=== PATIENT | female | born 1940 | race Caucasian/White ===

== ENCOUNTER 2017-11-09 01:40 | Emergency (ER) | payer MEDICARE ==
[2017-11-09] MEDS ORDERED: Metoprolol Tartrate 5 MG/5 ML SDV IVPUSH ONE (01:58)
[2017-11-09] MEDS ORDERED: Aspirin 81 MG Tab.Chew PO ONE (02:00)
[2017-11-09 02:24] LABS: CHLORIDE,CL 100 mmol/L (101-111); SODIUM,NA 131 mmol/L (135-145)
--- NOTE | 2017-11-09 02:29 | EDM.PDOC ---
ED HPI GENERAL MEDICAL PROBLEM - General Chief Complaint: Headache Stated Complaint: AMBULANCE-SOB Time Seen by Provider: 11/09/17 01:40 Source of Information: Reports: Patient, EMS History Limitations: Reports: No Limitations - History of Present Illness INITIAL COMMENTS - FREE TEXT/NARRATIVE: ED via [facility] with c/o headache and chest pain describes headache to top of head intermittent for past 2 months, constant for past 2 days, tonight points left parietal. . Sinus medication had been helpful until today. Tonight chest pain midsternal. Also notes that to have been intermittent for past 2 months, worse after eating pickles. Does not associate with activity. Last saw PCP one year ago. Reports, limiting caffeine and salt intake 2 days prior to most appointment so blood pressure would be down and not require pills. 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 Mid-Sternal Chest Pain Score (Numeric/FACES): 1 - Related Data Allergies Allergy/AdvReac Type Severity Reaction Status Date / Time No Known Allergies Allergy Verified 11/09/17 02:13 Home Meds: Home Meds Aspirin [Halfprin] 81 mg PO DAILY 04/07/16 [History] Ketorolac [Acular 0.5% Ophth Soln] 1 drop EYERT ASDIRECTED 04/07/16 [History] Lutein/Minerals/Vit A,C & E [Ocuvite] 1 tab PO BID 04/07/16 [History] Moxifloxacin [Vigamox 0.5% Ophth Soln] 1 drop EYEBOTH ASDIRECTED 04/07/16 [ History] Phenylephrine HCl/Acetaminophn [Daytime Sinus Softgel] 1 cap PO DAILY PRN [History] prednisoLONE Acetate [Prednisolone Acetate] 1 drop EYERT ASDIRECTED 04/07/16 [ History] Cataractive 3 1 drop EYELF QID 07/01/16 [History] Past Medical History HEENT History: Reports: Cataract, Macular Degeneration Cardiovascular History: Reports: Hypertension, Other (See Below) Other Cardiovascular History: AORTIC STENOSIS; PATIENT NOT TAKING ANY MEDICATIONS FOR HTN Respiratory History: Reports: None Gastrointestinal History: Reports: None Genitourinary History: Reports: None [employer]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: Musculoskeletal History: Reports: None Neurological History: Reports: None Psychiatric History: Reports: None Endocrine/Metabolic History: Reports: Multinodular Thyroid Hematologic History: Reports: None Immunologic History: Reports: None Oncologic (Cancer) History: Reports: None Dermatologic History: Reports: None - Infectious Disease History Infectious Disease History: Reports: Measles, Mumps - Past Surgical History Head Surgeries/Procedures: Reports: None HEENT Surgical History: Reports: None, Cataract Surgery Respiratory Surgical History: Reports: None GI Surgical History: Reports: Appendectomy Female Surgical History: Reports: None Endocrine Surgical History: Reports: Thyroid Biopsy, Other (See Below) Neurological Surgical History: Reports: None Musculoskeletal Surgical History: Reports: None Oncologic Surgical History: Reports: None Dermatological Surgical History: Reports: None Social & Family History - Family History HEENT: Reports: Glaucoma, Impaired Vision Cardiac: Reports: Other (See Below) Other Cardiac Family History: MOTHER HX OF RHEUMATIC FEVER AND CARDIAC DISEASE LATE IN LIFE Respiratory: Reports: None GI: Reports: Other (See Below) Other GI Family History: STOMACH CANCER - FATHER : Reports: None OBGYN: Reports: None Musculoskeletal: Reports: Gout Neurological: Reports: None Psychiatric: Reports: None Endocrine/Metabolic: Reports: Obesity/MBI 30+ Hematologic: Reports: None Immunologic: Reports: None Dermatologic: Reports: None Oncologic: Reports: Other (See Below) Other Oncologic Family History: STOMACH - Tobacco Use Smoking Status *Q: Former Smoker Used Tobacco, but Quit: No Month/Year Tobacco Last Used: 1959 Second Hand Smoke Exposure: No - Caffeine Use Caffeine Use: Reports: Coffee Caffeine Use Comment: 3-4 CUPS APPROX EACH DAY - Recreational Drug Use Recreational Drug Use: No Drug Use in Last 12 Months: No ED ROS GENERAL - Review of Systems Review Of Systems: See Below HEENT: Reports: Glasses Respiratory: Denies: Shortness of Breath, Cough Cardiovascular: Reports: Chest Pain, Blood Pressure Problem. Denies: Dyspnea on Exertion, Edema GI/Abdominal: Reports: No Symptoms, Difficulty Swallowing : Reports: Frequency (reports having to void at least hourly since childhood) Musculoskeletal: Reports: No Symptoms Skin: Reports: No Symptoms Neurological: Reports: Headache. Denies: Numbness, Trouble Speaking, Difficulty Walking, Weakness ED EXAM, GENERAL - Physical Exam Exam: See Below Exam Limited By: No Limitations General Appearance: Alert, No Apparent Distress, Anxious Eye Exam: Bilateral Eye: EOMI Ears: Normal External Exam Nose: Normal Inspection Throat/Mouth: Normal Inspection Head: Atraumatic, Normocephalic Neck: Normal Inspection Respiratory/Chest: No Respiratory Distress, Lungs Clear Cardiovascular: Normal Peripheral Pulses, Other (slightly irregular monitor sinus with PV's intermeittent runs of bigemeny) GI/Abdominal: Normal Bowel Sounds, Soft, Non-Tender Extremities: Normal Inspection Neurological: Alert, Oriented, Normal Cognition Psychiatric: Anxious Skin Exam: Warm, Dry, Intact, Normal Color Course - Vital Signs Last Recorded V/S: Last Vital Signs Temp 98.2 F 11/09/17 05:19 Pulse 86 11/09/17 05:19 Resp 19 11/09/17 05:19 BP 173/49 H 11/09/17 05:19 Pulse Ox 99 11/09/17 05:19 - Orders/Labs/Meds Orders: Active Orders 24 hr Category Date Time Status EKG Documentation Completion [RC] URGENT Care 11/09/17 01:45 Active Chest 1V Frontal [CR] Urgent Exams 11/09/17 01:55 Taken Head wo Cont [CT] Urgent Exams 11/09/17 01:55 Taken Labs: Laboratory Tests 11/09/17 11/09/17 11/09/17 Range/Units 01:56 01:56 01:56 WBC 5.6 (5.0-10.0) 10^3/uL RBC 3.32 L (4.2-5.4) 10^6/uL Hgb 10.9 L (12.0-16.0) g/dL Hct 32.4 L (37.0-47.0) % MCV 97.6 (80-100) fL MCH 32.8 (27.0-34.0) pg MCHC 33.6 (33.0-35.0) g/dL Plt Count 221 (150-450) 10^3/uL Neut % (Auto) 53.6 (42.2-75.2) % Lymph % (Auto) 32.8 (20.5-50.1) % [place] % (Auto) 11.0 H (2-8) % Eos % (Auto) 2.2 (1.0-3.0) % Baso % (Auto) 0.4 (0.0-1.0) % PT (9.0-12.0) SEC INR (0.9-1.2) Sodium 131 L (135-145) mmol/L Potassium 4.0 (3.6-5.0) mmol/L Chloride 100 L (101-111) mmol/L Carbon Dioxide 24.0 (21.0-31.0) mmol/L Anion Gap 11.0 BUN 21 H (7-18) mg/dL Creatinine 1.0 (0.6-1.3) mg/dL Est Cr Clr Drug Dosing 36.91 mL/min Estimated GFR (MDRD) 53 BUN/Creatinine Ratio 21.00 Glucose 105 (74-105) mg/dL Calcium 8.5 (8.4-10.2) mg/dl Total Bilirubin 0.8 (0.2-1.0) mg/dL AST 18 (10-42) IU/L ALT 12 (10-60) IU/L Alkaline Phosphatase 55 (42-121) IU/L Troponin I < 0.02 (0.00-0.02) ng/ml C-Reactive Protein < 0.5 (0.0-1.3) mg/dL B-Natriuretic Peptide 312 H (0-100) pg/ml Total Protein 6.6 L (6.7-8.2) g/dl Albumin 3.9 (3.2-5.5) g/dl Globulin 2.7 Albumin/Globulin Ratio 1.44 Amylase 84 (28-100) U/L Lipase 33 (22-51) U/L TSH, Ultra Sensitive (0.45-5.33) uIu/mL Urine Color (YELLOW) Urine Appearance (CLEAR) Urine pH (5.0-9.0) Ur Specific [place] (1.005-1.030) Urine Protein (NEGATIVE) Urine Glucose (UA) (NEGATIVE) Urine Ketones (NEGATIVE) Urine Occult Blood (NEGATIVE) Urine Nitrite (NEGATIVE) Urine Bilirubin (NEGATIVE) Urine Urobilinogen (0.2-1.0) mg/dL Ur Leukocyte Esterase (NEGATIVE) Urine RBC /HPF Urine WBC (0-5/HPF) /HPF Ur Epithelial Cells /HPF Urine Bacteria (0-FEW/HPF) /HPF 11/09/17 11/09/17 11/09/17 Range/Units 01:56 01:56 02:25 WBC (5.0-10.0) 10^3/uL RBC (4.2-5.4) 10^6/uL Hgb (12.0-16.0) g/dL Hct (37.0-47.0) % MCV (80-100) fL MCH (27.0-34.0) pg MCHC (33.0-35.0) g/dL Plt Count (150-450) 10^3/uL Neut % (Auto) (42.2-75.2) % Lymph % (Auto) (20.5-50.1) % [place] % (Auto) (2-8) % Eos % (Auto) (1.0-3.0) % Baso % (Auto) (0.0-1.0) % PT 9.5 (9.0-12.0) SEC INR 1.0 (0.9-1.2) Sodium (135-145) mmol/L Potassium (3.6-5.0) mmol/L Chloride (101-111) mmol/L Carbon Dioxide (21.0-31.0) mmol/L Anion Gap BUN (7-18) mg/dL Creatinine (0.6-1.3) mg/dL Est Cr Clr Drug Dosing mL/min Estimated GFR (MDRD) BUN/Creatinine Ratio Glucose (74-105) mg/dL Calcium (8.4-10.2) mg/dl Total Bilirubin (0.2-1.0) mg/dL AST (10-42) IU/L ALT (10-60) IU/L Alkaline Phosphatase (42-121) IU/L Troponin I (0.00-0.02) ng/ml C-Reactive Protein (0.0-1.3) mg/dL B-Natriuretic Peptide (0-100) pg/ml Total Protein (6.7-8.2) g/dl Albumin (3.2-5.5) g/dl Globulin Albumin/Globulin Ratio Amylase (28-100) U/L Lipase (22-51) U/L TSH, Ultra Sensitive 1.40 (0.45-5.33) uIu/mL Urine Color Light yellow (YELLOW) Urine Appearance Clear (CLEAR) Urine pH 7.5 (5.0-9.0) Ur Specific [place] 1.015 (1.005-1.030) Urine Protein Negative (NEGATIVE) Urine Glucose (UA) Negative (NEGATIVE) Urine Ketones Negative (NEGATIVE) Urine Occult Blood Negative (NEGATIVE) Urine Nitrite Negative (NEGATIVE) Urine Bilirubin Negative (NEGATIVE) Urine Urobilinogen 0.2 (0.2-1.0) mg/dL Ur Leukocyte Esterase Negative (NEGATIVE) Urine RBC Not seen /HPF Urine WBC 0-5 (0-5/HPF) /HPF Ur Epithelial Cells Few /HPF Urine Bacteria Occasional (0-FEW/HPF) /HPF Meds: Medications Discontinued Medications Generic Name Dose Route Start Last Admin Trade Name Freq PRN Reason Stop Dose Admin Acetaminophen 650 mg 11/09/17 02:39 11/09/17 03:11 Tylenol PO 11/09/17 02:40 650 mg NOW ONE Administration Aspirin 162 mg 11/09/17 02:00 11/09/17 02:05 Aspirin PO 11/09/17 02:01 162 mg ONETIME ONE Administration Iopamidol 100 ml 11/09/17 03:54 Isovue-300 (61%) IVPUSH 11/09/17 03:55 ONETIME ONE Metoprolol Tartrate 5 mg 11/09/17 01:58 11/09/17 02:07 Lopressor IVPUSH 11/09/17 01:59 5 mg ONETIME ONE Administration Morphine Sulfate 2 mg 11/09/17 05:51 11/09/17 06:05 Morphine IVPUSH 11/09/17 05:52 2 mg ONETIME ONE Administration Morphine Sulfate 2 mg 11/09/17 06:22 Morphine IVPUSH 11/09/17 06:23 ONETIME ONE Ondansetron HCl 4 mg 11/09/17 05:51 11/09/17 06:03 Zofran IV 11/09/17 05:52 4 mg ONETIME ONE Administration - Radiology Interpretation Free Text/Narrative:: CT head negative CXR right tracheal bowing probably related to left sided thyroid mass, indeterminate opacity with in the medial right upper lung field. CT w/wo contrast Diffuse enlargement of thyroid gland, Left lobe measures approximately 3.9x3.6.4 with approximately 1.5cm of substernal extension. This results in right tracheal deviation at level of facets with mild luminal narrowing. The right thyroid lobe measures 5.3x4.1x6.1 and is for most part intrathoracic with the inferior aspect reaching the level of the aortic arch. This results in leftward tracheal deviation with mild narrowing of lumen. please see report. - Re-Assessments/Exams Free Text/Narrative Re-Assessment/Exam: 11/09/17 05:52 TC consult with Matthew APODACA and Dr. Hernández surgery. Dr. 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 Tx via [facility]. 11/09/17 06:19 Patient requests code status of Do not resuscitate, Do not intubate Departure - Departure Time of Disposition: 06:00 Disposition: DC/Tfer to Acute Hospital 02 Condition: Undetermined Clinical Impression: Thyroid mass, Tracheal deviation, Intermittent chest pain, Ventricular bigeminy Headache Qualifiers: Headache type: unspecified Headache chronicity pattern: episodic headache Intractability: not intractable Qualified Code(s): R51 - Headache Hypertension Qualifiers: Hypertension type: unspecified Qualified Code(s): I10 - Essential (primary) hypertension - Discharge Information Forms: ED Department Discharge - My Orders Last 24 Hours: My Active Orders 11/09/17 01:45 EKG Documentation Completion [RC] URGENT 11/09/17 01:55 Chest 1V Frontal [CR] Urgent Head wo Cont [CT] Urgent - Assessment/Plan Last 24 Hours: My Active Orders 11/09/17 01:45 EKG Documentation Completion [RC] URGENT 11/09/17 01:55 Chest 1V Frontal [CR] Urgent Head wo Cont [CT] Urgent
[2017-11-09] MEDS ORDERED: Acetaminophen 325 MG Tab PO ONE (02:39)
[2017-11-09] MEDS ORDERED: Iopamidol 612 MG/ML 100 ML Bottle IVPUSH ONE (03:54)
[2017-11-09] MEDS ORDERED: Ondansetron 4 MG/2 ML SDV IV ONE (05:51)
[2017-11-09] MEDS ORDERED: Morphine 2 MG/ML Syringe IVPUSH ONE ×2 (05:51→06:22)
[2017-11-09 06:06] VITALS: BP 191/87
--- NOTE | 2017-11-10 14:22 | EKG ---
11/09/2017 - DANIELITO ANNA - TIME: 1:44 a.m. FINDINGS: Sinus tachycardia with ventricular bigeminy. [facility] /[id number]
--- NOTE | 2017-11-10 14:34 | EKG ---
11/10/2017 - DANIELITO ANNA - TIME: 3:24 a.m. FINDINGS: Sinus rhythm with multiple premature complexes. [facility] /[id number]
--- NOTE | 2017-11-10 15:04 | EKG ---
11/09/2017 - DANIELITO ANNA - TIME: 1:44 a.m. FINDINGS: Sinus tachycardia with ventricular bigeminy. [facility] /[id number]
== END 2017-11-09 06:39 ==
LOC: DL.ED 01:40
DX: E07.89 Other specified disorders of thyroid (principal); I10 Essential (primary) hypertension; J39.8 Other specified diseases of upper respiratory tract; R07.89 Other chest pain; R00.8 Other abnormalities of heart beat; Z87.891 Personal history of nicotine dependence
CPT/HCPCS: 36415; 70450; 71045; 71270; 80053; 81001; 82150; 83690; 83880; 84443; 84484; 85025; 85610; 86140; 93005; 93010; 96374; 96375; 99285; A9270; J2270; J2405; Q9967; J3490

== ENCOUNTER 2018-03-20 02:11 | Inpatient (IN) | payer MEDICARE ==
[2018-03-20 02:55] LABS: CHLORIDE,CL 82 mmol/L (101-111)
[2018-03-20 02:57] LABS: ANION GAP 11.5; SODIUM,NA 113 mmol/L (135-145)
[2018-03-20] MEDS ORDERED: Sodium Chloride 0.9% 1,000 ML IV ONE (03:01)
[2018-03-20] MEDS ORDERED: Acetaminophen 325 MG Tab PO ONE (03:14)
[2018-03-20] MEDS ORDERED: Morphine 2 MG/ML Syringe IVPUSH ONE (03:15)
--- NOTE | 2018-03-20 03:41 | EDM.PDOC ---
ED HPI GENERAL MEDICAL PROBLEM - General Chief Complaint: Headache Stated Complaint: AMBULANCE-DIZZY Time Seen by Provider: 03/20/18 02:15 Source of Information: Reports: Patient, EMS History Limitations: Reports: No Limitations - History of Present Illness INITIAL COMMENTS - FREE TEXT/NARRATIVE: ED with c/o headache to back of head for 2 weeks and feeling dizzy, worse when getting out of bed or from sitting. Fell last week leaving from [employer] on to right elbow and butt , has not hit head. Legs feel week overall. Uses cane when leaves home. 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 Bilateral Posterior Head Pain Score (Numeric/FACES): 9 - Related Data Allergies Allergy/AdvReac Type Severity Reaction Status Date / Time No Known Allergies Allergy Verified 11/09/17 02:13 Home Meds: Home Meds Aspirin [Halfprin] 81 mg PO DAILY 04/07/16 [History] Lutein/Minerals/Vit A,C & E [Ocuvite] 1 tab PO BID 04/07/16 [History] Cataractive 3 1 drop EYELF QID 07/01/16 [History] Lisinopril 20 mg PO BID 03/20/18 [History] hydroCHLOROthiazide [Hydrochlorothiazide] 25 mg PO DAILY 03/20/18 [History] Past Medical History HEENT History: Reports: Cataract, Impaired Vision, Macular Degeneration Cardiovascular History: Reports: Hypertension, Other (See Below) Other Cardiovascular History: AORTIC STENOSIS; PATIENT NOT TAKING ANY MEDICATIONS FOR HTN Respiratory History: Reports: None Gastrointestinal History: Reports: None Genitourinary History: Reports: 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: Musculoskeletal History: Reports: None Neurological History: Reports: None Psychiatric History: Reports: None Endocrine/Metabolic History: Reports: Multinodular Thyroid Hematologic History: Reports: None Immunologic History: Reports: None Oncologic (Cancer) History: Reports: None Dermatologic History: Reports: None - Infectious Disease History Infectious Disease History: Reports: Measles, Mumps - Past Surgical History Head Surgeries/Procedures: Reports: None HEENT Surgical History: Reports: None, Cataract Surgery Respiratory Surgical History: Reports: None GI Surgical History: Reports: Appendectomy Female Surgical History: Reports: None Endocrine Surgical History: Reports: Thyroid Biopsy, Other (See Below) Neurological Surgical History: Reports: None Musculoskeletal Surgical History: Reports: None Oncologic Surgical History: Reports: None Dermatological Surgical History: Reports: None Social & Family History - Family History Family Medical History: Noncontributory HEENT: Reports: Glaucoma, Impaired Vision Cardiac: Reports: Other (See Below) Other Cardiac Family History: MOTHER HX OF RHEUMATIC FEVER AND CARDIAC DISEASE LATE IN LIFE Respiratory: Reports: None GI: Reports: Other (See Below) Other GI Family History: STOMACH CANCER - FATHER : Reports: None OBGYN: Reports: None Musculoskeletal: Reports: Gout Neurological: Reports: None Psychiatric: Reports: None Endocrine/Metabolic: Reports: Obesity/MBI 30+ Hematologic: Reports: None Immunologic: Reports: None Dermatologic: Reports: None Oncologic: Reports: Other (See Below) Other Oncologic Family History: STOMACH - Tobacco Use Smoking Status *Q: Former Smoker Used Tobacco, but Quit: Yes Month/Year Tobacco Last Used: 03/1988 - Caffeine Use Caffeine Use: Reports: Coffee, Soda Caffeine Use Comment: 3-4 CUPS APPROX EACH DAY - Recreational Drug Use Recreational Drug Use: No ED ROS GENERAL - Review of Systems Review Of Systems: See Below Constitutional: Reports: Weakness HEENT: Reports: No Symptoms Respiratory: Reports: No Symptoms Cardiovascular: Reports: Lightheadedness. Denies: Chest Pain, Blood Pressure Problem, Dyspnea on Exertion, Syncope GI/Abdominal: Reports: Constipation : Reports: No Symptoms Musculoskeletal: Reports: No Symptoms Skin: Reports: No Symptoms Neurological: Reports: Dizziness, Headache (back of head) Psychiatric: Reports: No Symptoms - Physical Exam Exam: See Below Exam Limited By: No Limitations General Appearance: Alert, Mild Distress Eye Exam: Bilateral Eye: EOMI, Normal Fundi, PERRL Ears: Normal External Exam Nose: Normal Inspection Throat/Mouth: Normal Inspection, Normal Oropharynx, Normal Voice Head Exam: Atraumatic, Normocephalic Neck: Normal Inspection, Full Range of Motion Respiratory/Chest: No Respiratory Distress, Lungs Clear, Normal Breath Sounds Cardiovascular: Normal Peripheral Pulses, Regular Rate, Rhythm. No: No Edema ( trace pedal), No Murmur GI/Abdominal: Normal Bowel Sounds, Soft Rectal (Female) Exam: Normal Exam, Normal Rectal Tone, Heme - Stool Neuro Exam (Abbreviated): Alert, Oriented, CN II-XII Intact, Normal Cognition, No Motor/Sensory Deficits. No: Sensory/Motor Deficit Back Exam: Normal Inspection Extremities: Normal Range of Motion Psychiatric: Normal Affect, Normal Mood Skin Exam: Warm, Dry, Intact EKG INTERPRETATION Rhythm: NSR Course - Vital Signs Last Recorded V/S: Last Vital Signs Temp 98.3 F 03/20/18 02:15 Pulse 96 03/20/18 02:15 Resp 18 03/20/18 02:15 BP 186/81 H 03/20/18 02:15 Pulse Ox 100 03/20/18 02:15 Orthostatic Blood Pressure [ 149/66 Standing] Orthostatic Blood Pressure [ 164/83 Sitting] Orthostatic Blood Pressure [ 159/68 Supine] - Orders/Labs/Meds Orders: Active Orders 24 hr Category Date Time Status EKG 12 Lead [EKG Documentation Completion] [RC] URGENT Care 03/20/18 02:24 Active Head wo Cont [CT] Urgent Exams 03/20/18 02:24 Taken UA W/MICROSCOPIC [URIN] Stat Lab 03/20/18 02:50 Ordered Sodium Chloride 0.9% [Normal Saline] 1,000 ml Med 03/20/18 03:01 Active IV .BOLUS Medication Orders Sodium Chloride (Normal Saline) 1,000 mls @ 100 mls/hr IV .BOLUS ONE Stop: 03/20/18 13:00 Last Admin: 03/20/18 03:20 Dose: 100 mls/hr Labs: Laboratory Tests 03/20/18 03/20/18 03/20/18 Range/Units 02:30 02:30 02:50 WBC 4.4 L (5.0-10.0) 10^3/uL RBC 2.78 L (4.2-5.4) 10^6/uL Hgb 9.0 L D (12.0-16.0) g/dL Hct 25.7 L (37.0-47.0) % MCV 92.4 D (80-100) fL MCH 32.4 (27.0-34.0) pg MCHC 35.0 (33.0-35.0) g/dL Plt Count 199 (150-450) 10^3/uL Neut % (Auto) 53.9 (42.2-75.2) % Lymph % (Auto) 31.1 (20.5-50.1) % [place] % (Auto) 13.4 H (2-8) % Eos % (Auto) 1.4 (1.0-3.0) % Baso % (Auto) 0.2 (0.0-1.0) % Add Manual Diff Yes Neutrophils % (Manual) 50 (42-75) % Band Neutrophils % 8 % Lymphocytes % (Manual) 33 (20-50) % Atypical Lymphs % 0 % Monocytes % (Manual) 9 H (2-8) % Hypochromasia 1+ slight Poikilocytosis 1+ slight Sodium 113 L* D (135-145) mmol/L Potassium 4.5 (3.6-5.0) mmol/L Chloride 82 L D (101-111) mmol/L Carbon Dioxide 24.0 (21.0-31.0) mmol/L Anion Gap 11.5 BUN 17 (7-18) mg/dL Creatinine 0.7 (0.6-1.3) mg/dL Est Cr Clr Drug Dosing 53.91 mL/min Estimated GFR (MDRD) > 60 BUN/Creatinine Ratio 24.28 Glucose 92 (74-105) mg/dL Calcium 8.5 (8.4-10.2) mg/dl Magnesium 1.7 L (1.8-2.5) mg/dL Total Bilirubin 1.5 H (0.2-1.0) mg/dL AST 26 (10-42) IU/L ALT 14 (10-60) IU/L Alkaline Phosphatase 53 (42-121) IU/L Troponin I < 0.02 (0.00-0.02) ng/ml B-Natriuretic Peptide 168 H (0-100) pg/ml Total Protein 6.7 (6.7-8.2) g/dl Albumin 4.0 (3.2-5.5) g/dl Globulin 2.7 Albumin/Globulin Ratio 1.48 Urine Color Yellow (YELLOW) Urine Appearance Slightly cloudy (CLEAR) Urine pH 7.0 (5.0-9.0) Ur Specific [place] 1.015 (1.005-1.030) Urine Protein Negative (NEGATIVE) Urine Glucose (UA) Negative (NEGATIVE) Urine Ketones Negative (NEGATIVE) Urine Occult Blood Negative (NEGATIVE) Urine Nitrite Negative (NEGATIVE) Urine Bilirubin Negative (NEGATIVE) Urine Urobilinogen 0.2 (0.2-1.0) mg/dL Ur Leukocyte Esterase Trace H (NEGATIVE) Urine RBC 0-5 /HPF Urine WBC 0-5 (0-5/HPF) /HPF Ur Epithelial Cells Few /HPF Urine Bacteria Few (0-FEW/HPF) /HPF Meds: Medications Generic Name Dose Route Start Last Admin Trade Name Thomas PRN Reason Stop Dose Admin Sodium Chloride 1,000 mls @ 100 mls/hr 03/20/18 03:01 03/20/18 03:20 Normal Saline IV 03/20/18 13:00 100 mls/hr .BOLUS ONE Administration Discontinued Medications Generic Name Dose Route Start Last Admin Trade Name Thomas PRN Reason Stop Dose Admin Acetaminophen 650 mg 03/20/18 03:14 03/20/18 03:26 Tylenol PO 03/20/18 03:15 650 mg NOW ONE Administration Morphine Sulfate 2 mg 03/20/18 03:15 03/20/18 03:27 Morphine IVPUSH 03/20/18 03:16 2 mg ONETIME ONE Administration Departure - Departure Time of Disposition: 03:41 Disposition: Admitted As Inpatient 66 Condition: Good Clinical Impression: Hyponatremia, Dizziness Headache Qualifiers: Headache type: unspecified Headache chronicity pattern: episodic headache Intractability: not intractable Qualified Code(s): R51 - Headache Hypertension Qualifiers: Hypertension type: unspecified Qualified Code(s): I10 - Essential (primary) hypertension Anemia Qualifiers: Anemia type: unspecified type Qualified Code(s): D64.9 - Anemia, unspecified - Discharge Information *PRESCRIPTION DRUG MONITORING PROGRAM REVIEWED*: Not Applicable - My Orders Last 24 Hours: My Active Orders 03/20/18 02:24 EKG 12 Lead [EKG Documentation Completion] [RC] URGENT Head wo Cont [CT] Urgent 03/20/18 02:50 UA W/MICROSCOPIC [URIN] Stat 03/20/18 03:01 Sodium Chloride 0.9% [Normal Saline] 1,000 ml IV .BOLUS - Assessment/Plan Last 24 Hours: My Active Orders 03/20/18 02:24 EKG 12 Lead [EKG Documentation Completion] [RC] URGENT Head wo Cont [CT] Urgent 03/20/18 02:50 UA W/MICROSCOPIC [URIN] Stat 03/20/18 03:01 Sodium Chloride 0.9% [Normal Saline] 1,000 ml IV .BOLUS
[2018-03-20] MEDS ORDERED: Acetaminophen/HYDROcodone 325-10 MG Tab PO PRN (03:56)
[2018-03-20] MEDS ORDERED: Docusate Sodium 100 MG Cap PO PRN (03:56)
--- NOTE | 2018-03-20 05:33 | HP ---
CHIEF COMPLAINT: Headache. HISTORY OF PRESENT ILLNESS: The patient is a 77-year-old lady who was admitted through the emergency room because the patient has been complaining of on and off occipital headache that has been going on for the last 3 months and lately has just been constant. She also mentioned that she has been falling down, and last week, she fell and hit her buttocks. She denies though any hitting her head. She denies any syncope, chest pain, shortness of breath, fever, chills, nor any other associated symptoms. She was evaluated in the emergency room, and she was noted to have a sodium of 113. She also had a CAT scan of the head, but this did not show any acute changes. Because of the above, she was then admitted for further evaluation and management. PAST MEDICAL HISTORY: Remarkable for hypertension. SOCIAL HISTORY: The patient is a nonsmoker and nonalcohol drinker. FAMILY HISTORY: Noncontributory. REVIEW OF SYSTEMS: As in HPI. The rest of the review of systems is negative. HOME MEDICATIONS: 1. Aspirin. 2. Lutein. 3. cataract drops . 4. Lisinopril. 5. Hydrochlorothiazide. ALLERGIES: No known drug allergies. PHYSICAL EXAMINATION: General: The patient is a very pleasant lady. She is alert and oriented, not in any acute distress. Vital Signs: Blood pressure is 164/83, pulse of 96, respirations of 18, and temperature of 98.3. SHEENT: Normocephalic. No signs of trauma. Neck: Supple. No JVD. No lymphadenopathy. Heart: Regular rate and rhythm. Normal S1 and S2. No gallops. No rubs. Lungs: Equal bilaterally. No crackles. No wheezing. Abdomen: Soft and nontender. Bowel sounds positive. Extremities: Remarkable for trace bilateral pedal edema. No calf tenderness. There are no signs of cellulitis. Neurologic: Negative for any lateralizing sign. LAB WORKUP: CBC; WBC is 4.4, hemoglobin of 9, hematocrit is 25.7, and platelets of 199. Comprehensive panel; sodium is 113, chloride of 82, magnesium is 1.7, and total bilirubin of 1.5. BNP is 168. Urinalysis unremarkable. ADMITTING DIAGNOSES: 1. Hyponatremia. 2. Hypochloremia. 3. Headache. 4. Hypertension. TREATMENT PLAN: The patient is going to be admitted to general medicine floor. She will be started on IV fluid with normal saline. Free water will be restricted to 800 mL a day. We will discontinue her hydrochlorothiazide, we will continue with lisinopril, and we will also add amlodipine to control her blood pressure. The rest of the management is necessary, and the patient's code level status is no resuscitation. [facility] /[id number] MTDD
[2018-03-20] MEDS: Lutein/Minerals/Vit A,C & E Tab PO SCH ×2 (08:28→22:44)
[2018-03-20] MEDS: Aspirin 81 MG Tab.EC PO SCH (08:28)
[2018-03-20] MEDS: Lisinopril 20 MG Tab PO SCH ×2 (08:28→22:45)
[2018-03-20] MEDS: amLODIPine 5 MG Tab PO SCH (08:29)
[2018-03-20] MEDS: Enoxaparin 40 MG/0.4 ML Syringe SUBCUT SCH (08:31)
--- NOTE | 2018-03-20 12:39 | PN ---
DATE: 03/20/2018 SUBJECTIVE: The patient this morning is doing well. She still complains of some headache, but she denies any chest pain or shortness of breath, abdominal pain, nausea, or vomiting. OBJECTIVE: Vital Signs: Blood pressure is 177/65, pulse of 84, respirations are 18. Heart: Regular rate and rhythm. There is a grade 2/6 systolic ejection murmur. No rubs. Lungs: Equal bilaterally. No crackles. No wheezing. Abdomen: Soft. Nontender. Bowel sounds positive. Extremities: Negative for any significant pedal edema. No calf tenderness. LABORATORY DATA: Lab workup this morning, WBC is 5, hemoglobin is 8.6, hematocrit is 24.2, platelets are 196. PLAN: We will add clonidine 0.1 mg p.o. b.i.d. to her current regimen and we will continue with amlodipine 5 mg daily and lisinopril 20 mg b.i.d. for her hypertension. I am also going to send stool for Hemoccult testing because of her anemia, although the drop in hemoglobin is morning could just be dilutional. We will await the results of basic metabolic panel and magnesium level in a.m. [facility] /[id number]
[2018-03-20 14:59] LABS: SODIUM,NA 114 mmol/L (135-145)
[2018-03-20 15:00] LABS: ANION GAP 13.7; CHLORIDE,CL 84 mmol/L (101-111)
[2018-03-20] MEDS ORDERED: Furosemide 20 MG/2 ML VIAL IVPUSH ONE (15:25)
[2018-03-20] MEDS: Sodium Chloride 0.9% 1,000 ML IV SCH (16:29)
[2018-03-20] MEDS: cloNIDine 0.1 MG Tab PO SCH (22:45)
[2018-03-21] MEDS: Sodium Chloride 0.9% 1,000 ML IV SCH (05:56)
[2018-03-21 07:02] LABS: ANION GAP 12.7; CHLORIDE,CL 92 mmol/L (101-111); SODIUM,NA 122 mmol/L (135-145)
[2018-03-21] MEDS: Aspirin 81 MG Tab.EC PO SCH (09:46)
[2018-03-21] MEDS: amLODIPine 5 MG Tab PO SCH (09:46)
[2018-03-21] MEDS: cloNIDine 0.1 MG Tab PO SCH (09:47)
[2018-03-21] MEDS: Lutein/Minerals/Vit A,C & E Tab PO SCH ×2 (09:47→21:18)
[2018-03-21] MEDS: Lisinopril 20 MG Tab PO SCH ×2 (09:47→20:54)
[2018-03-21] MEDS: Enoxaparin 40 MG/0.4 ML Syringe SUBCUT SCH (09:47)
[2018-03-21] MEDS: Acetaminophen 325 MG Tab PO PRN (09:54)
--- NOTE | 2018-03-21 14:22 | PCM.PN ---
- General Info Date of Service: 03/21/18 Functional Status: Reports: Tolerating Diet, Ambulating - Patient Data Vitals - Most Recent: Last Vital Signs Temp 98.2 F 03/21/18 11:00 Pulse 63 03/21/18 11:00 Resp 20 03/21/18 11:00 BP 96/35 L 03/21/18 11:00 Pulse Ox 97 03/21/18 11:00 Orthostatic Blood Pressure [ 149/66 Standing] Orthostatic Blood Pressure [ 164/83 Sitting] Orthostatic Blood Pressure [ 159/68 Supine] Weight - Most Recent: 152 lb I&O - Last 24 Hours: Intake & Output 03/20/18 03/21/18 03/21/18 22:59 06:59 14:59 Intake Total 365 75 360 Output Total 2000 1000 150 Balance -1635 -925 210 Lab Results Last 24 Hours: Laboratory Results - last 24 hr 03/20/18 03/21/18 03/21/18 Range/Units 05:50 06:23 06:23 Sodium 114 L* (135-145) mmol/L Potassium 4.7 (3.6-5.0) mmol/L Chloride 84 L (101-111) mmol/L Carbon Dioxide 21.0 (21.0-31.0) mmol/L Anion Gap 13.7 BUN 17 (7-18) mg/dL Creatinine 0.9 (0.6-1.3) mg/dL Est Cr Clr Drug Dosing 41.93 mL/min Estimated GFR (MDRD) > 60 Glucose 86 (74-105) mg/dL Calcium 8.3 L (8.4-10.2) mg/dl Magnesium 1.9 (1.8-2.5) mg/dL TSH, Ultra Sensitive 1.04 (0.45-5.33) uIu/mL 03/21/18 Range/Units 06:23 Sodium 122 L (135-145) mmol/L Potassium 4.7 (3.6-5.0) mmol/L Chloride 92 L (101-111) mmol/L Carbon Dioxide 22.0 (21.0-31.0) mmol/L Anion Gap 12.7 BUN 19 H (7-18) mg/dL Creatinine 0.9 (0.6-1.3) mg/dL Est Cr Clr Drug Dosing 41.93 mL/min Estimated GFR (MDRD) > 60 Glucose 91 (74-105) mg/dL Calcium 8.4 (8.4-10.2) mg/dl Magnesium (1.8-2.5) mg/dL TSH, Ultra Sensitive (0.45-5.33) uIu/mL Med Orders - Current: Current Medications Acetaminophen (Tylenol) 650 mg PO Q4H PRN PRN Reason: Pain (Mild 1-3)/fever Last Admin: 03/21/18 09:54 Dose: 650 mg Hydrocodone Bitart/Acetaminophen ([place] 325-10 Mg) 0.5 tab PO Q4H PRN PRN Reason: Pain (moderate 4-6) Amlodipine Besylate (Norvasc) 5 mg PO DAILY [facility] Last Admin: 03/21/18 09:46 Dose: 5 mg Aspirin (Halfprin) 81 mg PO DAILY [facility] Last Admin: 03/21/18 09:46 Dose: 81 mg Clonidine HCl (Catapres) 0.1 mg PO DAILY [facility] Docusate Sodium (Colace) 100 mg PO BID PRN PRN Reason: Constipation Enoxaparin Sodium (Lovenox) 40 mg SUBCUT DAILY [facility] Last Admin: 03/21/18 09:47 Dose: 40 mg Lisinopril (Prinivil) 20 mg PO BID [facility] Last Admin: 03/21/18 09:47 Dose: 20 mg Magnesium Oxide (Magnesium Oxide) 250 mg PO BIDM [facility] Last Admin: 03/21/18 09:46 Dose: 250 mg Multivitamins/Minerals (I-Jany) 1 each PO BID [facility] Last Admin: 03/21/18 09:47 Dose: 1 each Non-Formulary Medication (Cataractive 3) 1 drop EYELF QID [facility] Discontinued Medications Acetaminophen (Tylenol) 650 mg PO NOW ONE Stop: 03/20/18 03:15 Last Admin: 03/20/18 03:26 Dose: 650 mg Clonidine HCl (Catapres) 0.1 mg PO Q12HR [facility] Last Admin: 03/21/18 09:47 Dose: 0.1 mg Furosemide (Lasix) 20 mg IVPUSH NOW ONE Stop: 03/20/18 15:26 Last Admin: 03/20/18 16:03 Dose: 20 mg Sodium Chloride (Normal Saline) 1,000 mls @ 100 mls/hr IV .BOLUS ONE Stop: 03/20/18 13:00 Last Infusion: 03/20/18 17:22 Dose: Infused Sodium Chloride (Normal Saline) 1,000 mls @ 75 mls/hr IV ASDIRECTED [facility] Last Admin: 03/21/18 05:56 Dose: 75 mls/hr Morphine Sulfate (Morphine) 2 mg IVPUSH ONETIME ONE Stop: 03/20/18 03:16 Last Admin: 03/20/18 03:27 Dose: 2 mg - Exam General: Alert, Oriented Lungs: Clear to Auscultation, Normal Respiratory Effort Cardiovascular: Regular Rate, Regular Rhythm GI/Abdominal Exam: Normal Bowel Sounds, Soft, Non-Tender Extremities: No Pedal Edema - Problem List Review Problem List Initiated/Reviewed/Updated: Yes - My Orders Last 24 Hours: My Active Orders 03/21/18 18:00 SODIUM,NA [CHEM] Timed 03/22/18 09:00 cloNIDine [Catapres] 0.1 mg PO DAILY - Plan Plan:: Patient presented with uncontrolled hypertension and hyponatremia. Hypertension: She was started on amlodipine, CLonidine twice a day and lisinopril 20 mg twice a day. Hydrochlorothiazide was already discontinued due to hyponatremia Blood pressure is borderline now, we'll cut down the clonidine to once a day for now. Continue checking blood pressure monitoring. Hyponatremia, likely from hydrochlorothiazide use. Patient was started on fluid restriction Hydrochlorothiazide was discontinued. She was also on normal saline hydration. For now, we'll discontinue normal saline and will recheck sodium level
[2018-03-21] MEDS: CATARACTIVE EYELF SCH (14:52)
[2018-03-21] MEDS ORDERED: Bisacodyl 10 MG Supp RECTAL PRN (15:05)
[2018-03-22] MEDS: Aspirin 81 MG Tab.EC PO SCH (09:54)
[2018-03-22] MEDS: Lutein/Minerals/Vit A,C & E Tab PO SCH ×2 (09:56→21:07)
[2018-03-22] MEDS: Enoxaparin 40 MG/0.4 ML Syringe SUBCUT SCH (10:16)
--- NOTE | 2018-03-22 13:20 | PCM.PN ---
- General Info Date of Service: 03/22/18 Admission Dx/Problem (Free Text): Hyponatremia Subjective Update: 77 yo with hx of hypertension, admitted with headaches, found to have hyponatremia. Was previously on HCTZ which was discontinued. On fluid restriction. Feels better today. Headache is improved. Wants to go home. Functional Status: Reports: Pain Controlled - Review of Systems General: Reports: No Symptoms HEENT: Reports: No Symptoms Pulmonary: Reports: No Symptoms Cardiovascular: Reports: No Symptoms Gastrointestinal: Reports: No Symptoms Genitourinary: Reports: No Symptoms Musculoskeletal: Reports: No Symptoms Skin: Reports: No Symptoms - Patient Data Vitals - Most Recent: Last Vital Signs Temp 37.3 C 03/22/18 11:00 Pulse 65 03/22/18 11:00 Resp 20 03/22/18 11:00 BP 126/44 L 03/22/18 11:00 Pulse Ox 100 03/22/18 11:00 Orthostatic Blood Pressure [ 149/66 Standing] Orthostatic Blood Pressure [ 164/83 Sitting] Orthostatic Blood Pressure [ 159/68 Supine] Weight - Most Recent: 68.946 kg I&O - Last 24 Hours: Intake & Output 03/21/18 03/22/18 03/22/18 22:59 06:59 14:59 Intake Total 480 100 Output Total 100 650 Balance 380 -550 Lab Results Last 24 Hours: Laboratory Results - last 24 hr 03/21/18 03/22/18 Range/Units 17:30 11:20 Sodium 122 L 125 L (135-145) mmol/L Potassium 5.0 (3.6-5.0) mmol/L Chloride 96 L (101-111) mmol/L Carbon Dioxide 22.0 (21.0-31.0) mmol/L Anion Gap 12.0 BUN 30 H (7-18) mg/dL Creatinine 1.0 (0.6-1.3) mg/dL Est Cr Clr Drug Dosing 37.73 mL/min Estimated GFR (MDRD) 53 Glucose 96 (74-105) mg/dL Calcium 8.4 (8.4-10.2) mg/dl Med Orders - Current: Current Medications Acetaminophen (Tylenol) 650 mg PO Q4H PRN PRN Reason: Pain (Mild 1-3)/fever Last Admin: 03/21/18 09:54 Dose: 650 mg Hydrocodone Bitart/Acetaminophen ([place] 325-10 Mg) 0.5 tab PO Q4H PRN PRN Reason: Pain (moderate 4-6) Amlodipine Besylate (Norvasc) 5 mg PO DAILY [facility] Last Admin: 03/21/18 09:46 Dose: 5 mg Aspirin (Halfprin) 81 mg PO DAILY [facility] Last Admin: 03/22/18 09:54 Dose: 81 mg Bisacodyl (Dulcolax) 10 mg RECTAL DAILY PRN PRN Reason: Constipation Clonidine HCl (Catapres) 0.1 mg PO DAILY [facility] Docusate Sodium (Colace) 100 mg PO BID PRN PRN Reason: Constipation Enoxaparin Sodium (Lovenox) 40 mg SUBCUT DAILY [facility] Last Admin: 03/22/18 10:16 Dose: 40 mg Magnesium [facility]ide ([facility]) [facility] [place] Last Admin: 03/22/18 09:54 Dose: 250 mg Multivitamins/Minerals (I-Jany) 1 each PO BID [facility] Last Admin: 03/22/18 09:56 Dose: 1 each Senna/Docusate Sodium (Senna Plus) 1 tab PO DAILY PRN PRN Reason: Constipation Last Admin: 03/21/18 17:32 Dose: 1 tab Discontinued Medications Acetaminophen (Tylenol) 650 mg PO NOW ONE Stop: 03/20/18 03:15 Last Admin: 03/20/18 03:26 Dose: 650 mg Clonidine HCl (Catapres) 0.1 mg PO Q12HR [facility] Last Admin: 03/21/18 09:47 Dose: 0.1 mg Furosemide (Lasix) 20 mg IVPUSH NOW ONE Stop: 03/20/18 15:26 Last Admin: 03/20/18 16:03 Dose: 20 mg Sodium Chloride (Normal Saline) 1,000 mls @ 100 mls/hr IV .BOLUS ONE Stop: 03/20/18 13:00 Last Infusion: 03/20/18 17:22 Dose: Infused Sodium Chloride (Normal Saline) 1,000 mls @ 75 mls/hr IV ASDIRECTED [facility] Last Admin: 03/21/18 05:56 Dose: 75 mls/hr Lisinopril (Prinivil) 20 mg PO BID [facility] Last Admin: 03/21/18 20:54 Dose: Not Given Morphine Sulfate (Morphine) 2 mg IVPUSH ONETIME ONE Stop: 03/20/18 03:16 Last Admin: 03/20/18 03:27 Dose: 2 mg Non-Formulary Medication (Cataractive 3) 1 drop EYELF QID [facility] Last Admin: 03/21/18 14:52 Dose: Not Given - Exam General: Alert, Oriented HEENT: Pupils Equal, Pupils Reactive Neck: Supple Lungs: Clear to Auscultation Cardiovascular: Regular Rate, Regular Rhythm GI/Abdominal Exam: Normal Bowel Sounds - Problem List Review Problem List Initiated/Reviewed/Updated: Yes - My Orders Last 24 Hours: My Active Orders 03/22/18 18:00 BASIC METABOLIC PANEL,BMP [CHEM] Timed 03/23/18 05:11 BMP [BASIC METABOLIC PANEL,BMP] [CHEM] AM - Plan Plan:: Patient presented with uncontrolled hypertension and hyponatremia. Hypertension: BP on the lower side DC lisinopril, continue clonidine and amlodipine Hold BP meds today and continue monitoring BP Hyponatremia, likely from hydrochlorothiazide use. Patient was started on fluid restriction Hydrochlorothiazide was discontinued. BMP Q12 hrs monitoring Start salt tabs CODE status: DNR/DNI
[2018-03-22] MEDS: cloNIDine 0.1 MG Tab PO SCH (16:06)
[2018-03-22] MEDS: amLODIPine 5 MG Tab PO SCH (16:07)
[2018-03-22] MEDS: Lisinopril 20 MG Tab PO SCH (16:15)
[2018-03-22] MEDS: Sodium Chloride 1 GM Tab PO SCH ×2 (16:16→21:08)
[2018-03-22 18:22] LABS: ANION GAP 11.7
[2018-03-22] MEDS: Acetaminophen 325 MG Tab PO PRN (21:08)
[2018-03-23 07:06] LABS: ANION GAP 9.1; CHLORIDE,CL 98 mmol/L (101-111); SODIUM,NA 126 mmol/L (135-145)
[2018-03-23] MEDS: Lutein/Minerals/Vit A,C & E Tab PO SCH ×2 (08:43→20:36)
[2018-03-23] MEDS: amLODIPine 5 MG Tab PO SCH ×3 (08:44→10:50)
[2018-03-23] MEDS: Aspirin 81 MG Tab.EC PO SCH (08:44)
[2018-03-23] MEDS: Sodium Chloride 1 GM Tab PO SCH ×3 (08:44→20:36)
[2018-03-23] MEDS: cloNIDine 0.1 MG Tab PO SCH (08:45)
[2018-03-23] MEDS: Enoxaparin 40 MG/0.4 ML Syringe SUBCUT SCH (08:46)
[2018-03-23] MEDS ORDERED: Lisinopril 20 MG Tab PO SCH ×3 (10:00→21:00)
[2018-03-23] MEDS ORDERED: amLODIPine 5 MG Tab PO ONE (10:45)
--- NOTE | 2018-03-23 11:38 | PCM.PN ---
- General Info Date of Service: 03/23/18 Admission Dx/Problem (Free Text): Hyponatremia Subjective Update: 77 yo with hx of hypertension, admitted with headaches, found to have hyponatremia. Was previously on HCTZ which was discontinued. On fluid restriction. Feels better today. Headache is improved. Nursing staff is concerned about the patient's ambulatory function, but patient wants to go home. BP is elevated - Review of Systems General: Reports: No Symptoms HEENT: Reports: No Symptoms Pulmonary: Reports: No Symptoms Cardiovascular: Reports: No Symptoms Gastrointestinal: Reports: No Symptoms Genitourinary: Reports: No Symptoms Musculoskeletal: Reports: No Symptoms - Patient Data Vitals - Most Recent: Last Vital Signs Temp 37.5 C 03/23/18 10:55 Pulse 73 03/23/18 10:55 Resp 20 03/23/18 10:55 BP 131/47 L 03/23/18 10:55 Pulse Ox 100 03/23/18 10:55 Orthostatic Blood Pressure [ 149/66 Standing] Orthostatic Blood Pressure [ 164/83 Sitting] Orthostatic Blood Pressure [ 159/68 Supine] Weight - Most Recent: 68.946 kg I&O - Last 24 Hours: Intake & Output 03/22/18 03/23/18 03/23/18 22:59 06:59 14:59 Intake Total 300 Output Total 500 200 Balance -200 -200 Lab Results Last 24 Hours: Laboratory Results - last 24 hr 03/22/18 03/22/18 03/23/18 Range/Units 11:20 18:00 06:29 Sodium 125 L 126 L 126 L (135-145) mmol/L Potassium 5.0 4.7 5.1 H (3.6-5.0) mmol/L Chloride 96 L 97 L 98 L (101-111) mmol/L Carbon Dioxide 22.0 22.0 24.0 (21.0-31.0) mmol/L Anion Gap 12.0 11.7 9.1 BUN 30 H 32 H 24 H (7-18) mg/dL Creatinine 1.0 1.0 0.9 (0.6-1.3) mg/dL Est Cr Clr Drug Dosing 37.73 37.73 41.93 mL/min Estimated GFR (MDRD) 53 53 > 60 Glucose 96 120 H 102 (74-105) mg/dL Calcium 8.4 8.4 8.5 (8.4-10.2) mg/dl Med Orders - Current: Current Medications Acetaminophen (Tylenol) 650 mg PO Q4H PRN PRN Reason: Pain (Mild 1-3)/fever Last Admin: 03/22/18 21:08 Dose: 650 mg Hydrocodone Bitart/Acetaminophen ([place] 325-10 Mg) 0.5 tab PO Q4H PRN PRN Reason: Pain (moderate 4-6) Amlodipine Besylate (Norvasc) 10 mg PO DAILY [facility] Last Admin: 03/23/18 10:50 Dose: Not Given Aspirin (Halfprin) 81 mg PO DAILY [facility] Last Admin: 03/23/18 08:44 Dose: 81 mg Bisacodyl (Dulcolax) 10 mg RECTAL DAILY PRN PRN Reason: Constipation Clonidine HCl (Catapres) 0.1 mg PO DAILY [facility] Last Admin: 03/23/18 08:45 Dose: 0.1 mg Docusate Sodium (Colace) 100 mg PO BID PRN PRN Reason: Constipation Enoxaparin Sodium (Lovenox) 40 mg SUBCUT DAILY [facility] Last Admin: 03/23/18 08:46 Dose: 40 mg Lisinopril (Prinivil) 20 mg PO BEDTIME [facility] Lisinopril (Prinivil) 20 mg PO BEDTIME [facility] Magnesium Oxide (Magnesium Oxide) 250 mg PO BIDM [facility] Last Admin: 03/23/18 08:44 Dose: 250 mg Multivitamins/Minerals (I-Jany) 1 each PO BID [facility] Last Admin: 03/23/18 08:43 Dose: 1 each Senna/Docusate Sodium (Senna Plus) 1 tab PO DAILY PRN PRN Reason: Constipation Last Admin: 03/21/18 17:32 Dose: 1 tab Sodium Chloride (Sodium Chloride) 1 gm PO TID [facility] Last Admin: 03/23/18 08:44 Dose: 1 gm Sodium Chloride (Saline Flush) 10 ml FLUSH BID [facility] Discontinued Medications Acetaminophen (Tylenol) 650 mg PO NOW ONE Stop: 03/20/18 03:15 Last Admin: 03/20/18 03:26 Dose: 650 mg Amlodipine Besylate (Norvasc) 5 mg PO DAILY [facility] Last Admin: 03/23/18 08:44 Dose: 5 mg Clonidine HCl (Catapres) 0.1 mg PO Q12HR [facility] Last Admin: 03/21/18 09:47 Dose: 0.1 mg Furosemide (Lasix) 20 mg IVPUSH NOW ONE Stop: 03/20/18 15:26 Last Admin: 03/20/18 16:03 Dose: 20 mg Sodium Chloride (Normal Saline) 1,000 mls @ 100 mls/hr IV .BOLUS ONE Stop: 03/20/18 13:00 Last Infusion: 03/20/18 17:22 Dose: Infused Sodium Chloride (Normal Saline) 1,000 mls @ 75 mls/hr IV ASDIRECTED [facility] Last Admin: 03/21/18 05:56 Dose: 75 mls/hr Lisinopril (Prinivil) 20 mg PO BID [facility] Last Admin: 03/22/18 16:15 Dose: Not Given Morphine Sulfate (Morphine) 2 mg IVPUSH ONETIME ONE Stop: 03/20/18 03:16 Last Admin: 03/20/18 03:27 Dose: 2 mg Non-Formulary Medication (Cataractive 3) 1 drop EYELF QID [facility] Last Admin: 03/21/18 14:52 Dose: Not Given - Exam General: Alert, Oriented HEENT: Pupils Equal, Pupils Reactive Neck: Supple Lungs: Clear to Auscultation, Normal Respiratory Effort Cardiovascular: Regular Rate, Regular Rhythm, Murmurs (4/6 systolic murmur) GI/Abdominal Exam: Normal Bowel Sounds - Problem List Review Problem List Initiated/Reviewed/Updated: Yes - My Orders Last 24 Hours: My Active Orders 03/22/18 14:00 Sodium Chloride 1 gm PO TID 03/23/18 09:00 amLODIPine [Norvasc] 10 mg PO DAILY 03/23/18 09:24 OT Evaluation and Treatment [CONS] Routine PT Evaluation and Treatment [CONS] Routine 03/23/18 18:00 BASIC METABOLIC PANEL,BMP [CHEM] Timed 03/23/18 21:00 Lisinopril [Prinivil] 20 mg PO BEDTIME Lisinopril [Prinivil] 20 mg PO BEDTIME Sodium Chloride 0.9% [Saline Flush] 10 ml FLUSH BID 03/24/18 05:11 BASIC METABOLIC PANEL,BMP [CHEM] AM - Plan Plan:: Patient presented with uncontrolled hypertension and hyponatremia. Hypertension: BP elevated restart lisinopril, continue clonidine and amlodipine (increase to 10 mg daily) Hyponatremia, likely from hydrochlorothiazide use. Na improved slightly to 126 Patient was started on fluid restriction Hydrochlorothiazide was discontinued. BMP Q12 hrs monitoring Start salt tabs Hyperkalemia K+ 5.1, mildly elevated recheck K+ this evening. CODE status: DNR/DNI
[2018-03-23 18:36] LABS: ANION GAP 14.1
[2018-03-23] MEDS: Sodium Chloride 0.9% 10 ML Syringe FLUSH SCH (20:37)
[2018-03-24 06:43] LABS: ANION GAP 9.7; CHLORIDE,CL 99 mmol/L (101-111); SODIUM,NA 126 mmol/L (135-145)
[2018-03-24] MEDS: Sodium Chloride 1 GM Tab PO SCH (08:58)
[2018-03-24] MEDS: cloNIDine 0.1 MG Tab PO SCH (08:58)
[2018-03-24] MEDS: Aspirin 81 MG Tab.EC PO SCH (08:59)
[2018-03-24] MEDS: amLODIPine 5 MG Tab PO SCH (08:59)
[2018-03-24] MEDS: Lutein/Minerals/Vit A,C & E Tab PO SCH (08:59)
[2018-03-24] MEDS ORDERED: amLODIPine 5 MG Tab PO SCH (09:00)
[2018-03-24] MEDS: Enoxaparin 40 MG/0.4 ML Syringe SUBCUT SCH (09:00)
[2018-03-24 10:50] VITALS: BP 141/38
[2018-03-24] MEDS: Acetaminophen 325 MG Tab PO PRN (11:26)
[2018-03-24] MEDS: Sodium Chloride 0.9% 10 ML Syringe FLUSH SCH (11:27)
--- NOTE | 2018-03-24 11:39 | PCM.DCSUM1 ---
Discharge Summary - Hospital Course HPI Initial Comments: 77 yo with hx of hypertension, admitted with headaches, found to have hyponatremia. Was previously on HCTZ which was discontinued. Managed with fluid restriction salt tablets. Feels better today. Headache resolved. BP controlled. Na 126 today. Patient seen today with no symptoms. She insists to go home. She has no symptoms on exam. She is doing well. She is being discharge home on sodium tablets. She is advised on fluid restriction. She was provided CLINIC DIRECTOR services but she declined the offer. Says she is very independent and does not need help. Diagnosis: Stroke: No - Discharge Data Discharge Date: 03/24/18 Discharge Disposition: Home, Self-Care 01 Condition: Stable - Patient Summary/Data Consults: Consultations 03/23/18 09:24 OT Evaluation and Treatment [CONS] Routine PT Evaluation and Treatment [CONS] Routine - Patient Instructions Diet: Heart Healthy Diet Fluid Restriction: 1500 mL Activity: As Tolerated Notify Provider of: Fever, Increased Pain, Swelling and Redness, Drainage, Nausea and/or Vomiting - Discharge Plan *PRESCRIPTION DRUG MONITORING PROGRAM REVIEWED*: Not Applicable Prescriptions/Med Rec: Acetaminophen [Tylenol] 650 mg PO Q8H PRN 5 Days #20 tablet PRN Reason: Pain (Mild 1-3)/fever Lisinopril [Prinivil] 40 mg PO BEDTIME 60 Days #30 tablet Magnesium Oxide 250 mg PO BIDM 30 Days #60 tablet Sodium Chloride 1 gm PO TID 1 Days #90 tablet Home Medications: Home Meds Aspirin [Halfprin] 81 mg PO DAILY 04/07/16 [History] Lutein/Minerals/Vit A,C & E [Ocuvite] 1 tab PO BID 04/07/16 [History] Acetaminophen [Tylenol] 650 mg PO Q8H PRN 5 Days #20 tablet 03/24/18 [Rx] Lisinopril [Prinivil] 40 mg PO BEDTIME 60 Days #30 tablet 03/24/18 [Rx] Magnesium Oxide 250 mg PO BIDM 30 Days #60 tablet 03/24/18 [Rx] Sodium Chloride 1 gm PO TID 1 Days #90 tablet 03/24/18 [Rx] Sodium Chloride 0.9% [Saline Flush] 10 ml FLUSH BID syringe 03/24/18 [Rx] Forms: ED Department Discharge Referrals: PCP,Unobtain [Ordering Only Provider] - - Discharge Summary/Plan Comment DC Time >30 min.: Yes - General Info Date of Service: 03/24/18 Admission Dx/Problem (Free Text: Hyponatremia Subjective Update: 77 yo with hx of hypertension, admitted with headaches, found to have hyponatremia. Was previously on HCTZ which was discontinued. Managed with fluid restriction salt tablets. Feels better today. Headache resolved. BP controlled. Na 126 today. Patient seen today with no symptoms. She insists to go home. She has no symptoms on exam. She is doing well. She is being discharge home on sodium tablets. She is advised on fluid restriction. She was provided CLINIC DIRECTOR services but she declined the offer. Says she is very independent and does not need help. Functional Status: Reports: Pain Controlled - Review of Systems General: Reports: No Symptoms HEENT: Reports: No Symptoms Pulmonary: Reports: No Symptoms Cardiovascular: Reports: No Symptoms Gastrointestinal: Reports: No Symptoms Genitourinary: Reports: No Symptoms Musculoskeletal: Reports: No Symptoms Skin: Reports: No Symptoms Neurological: Reports: No Symptoms Psychiatric: Reports: No Symptoms - Patient Data Vitals - Most Recent: Last Vital Signs Temp 98.6 F 03/24/18 10:49 Pulse 78 03/24/18 10:49 Resp 20 03/24/18 10:49 BP 141/38 H 03/24/18 10:49 Pulse Ox 100 03/24/18 10:49 Orthostatic Blood Pressure [ 149/66 Standing] Orthostatic Blood Pressure [ 164/83 Sitting] Orthostatic Blood Pressure [ 159/68 Supine] Weight - Most Recent: 152 lb I&O - Last 24 hours: Intake & Output 03/23/18 03/24/18 03/24/18 22:59 06:59 14:59 Intake Total 660 400 Balance 660 400 Lab Results - Last 24 hrs: Laboratory Results - last 24 hr 03/23/18 03/24/18 Range/Units 18:10 05:55 Sodium 125 L 126 L (135-145) mmol/L Potassium 5.1 H 4.7 (3.6-5.0) mmol/L Chloride 97 L 99 L (101-111) mmol/L Carbon Dioxide 19.0 L 22.0 (21.0-31.0) mmol/L Anion Gap 14.1 9.7 BUN 24 H 20 H (7-18) mg/dL Creatinine 1.0 0.8 (0.6-1.3) mg/dL Est Cr Clr Drug Dosing 37.73 47.17 mL/min Estimated GFR (MDRD) 53 > 60 Glucose 132 H 116 H (74-105) mg/dL Calcium 8.4 8.4 (8.4-10.2) mg/dl Med Orders - Current: Current Medications Acetaminophen (Tylenol) 650 mg PO Q4H PRN PRN Reason: Pain (Mild 1-3)/fever Last Admin: 03/24/18 11:26 Dose: 650 mg Hydrocodone Bitart/Acetaminophen ([place] 325-10 Mg) 0.5 tab PO Q4H PRN PRN Reason: Pain (moderate 4-6) Amlodipine Besylate (Norvasc) 10 mg PO DAILY [facility] Last Admin: 03/24/18 08:59 Dose: 10 mg Aspirin (Halfprin) 81 mg PO DAILY [facility] Last Admin: 03/24/18 08:59 Dose: 81 mg Bisacodyl (Dulcolax) 10 mg RECTAL DAILY PRN PRN Reason: Constipation Clonidine HCl (Catapres) 0.1 mg PO DAILY [facility] Last Admin: 03/24/18 08:58 Dose: 0.1 mg Docusate Sodium (Colace) 100 mg PO BID PRN PRN Reason: Constipation Enoxaparin Sodium (Lovenox) 40 mg SUBCUT DAILY [facility] Last Admin: 03/24/18 09:00 Dose: 40 mg Lisinopril (Prinivil) 20 mg PO BEDTIME [facility] Last Admin: 03/23/18 20:42 Dose: Not Given Magnesium Oxide (Magnesium Oxide) 250 mg PO BIDM [facility] Last Admin: 03/24/18 08:59 Dose: 250 mg Multivitamins/Minerals (I-Jany) 1 each PO BID [facility] Last Admin: 03/24/18 08:59 Dose: 1 each Senna/Docusate Sodium (Senna Plus) 1 tab PO DAILY PRN PRN Reason: Constipation Last Admin: 03/21/18 17:32 Dose: 1 tab Sodium Chloride (Sodium Chloride) 1 gm PO TID [facility] Last Admin: 03/24/18 08:58 Dose: 1 gm Sodium Chloride (Saline Flush) 10 ml FLUSH BID [facility] Last Admin: 03/24/18 11:27 Dose: 10 ml Discontinued Medications Acetaminophen (Tylenol) 650 mg PO NOW ONE Stop: 03/20/18 03:15 Last Admin: 03/20/18 03:26 Dose: 650 mg Amlodipine Besylate (Norvasc) 5 mg PO DAILY [facility] Last Admin: 03/23/18 08:44 Dose: 5 mg Amlodipine Besylate (Norvasc) 5 mg PO DAILY [facility] Last Admin: 03/24/18 11:27 Dose: 5 mg Clonidine HCl (Catapres) 0.1 mg PO Q12HR [facility] Last Admin: 03/21/18 09:47 Dose: 0.1 mg Furosemide (Lasix) 20 mg IVPUSH NOW ONE Stop: 03/20/18 15:26 Last Admin: 03/20/18 16:03 Dose: 20 mg Sodium Chloride (Normal Saline) 1,000 mls @ 100 mls/hr IV .BOLUS ONE Stop: 03/20/18 13:00 Last Infusion: 03/20/18 17:22 Dose: Infused Sodium Chloride (Normal Saline) 1,000 mls @ 75 mls/hr IV ASDIRECTED [facility] Last Admin: 03/21/18 05:56 Dose: 75 mls/hr Lisinopril (Prinivil) 20 mg PO BID [facility] Last Admin: 03/22/18 16:15 Dose: Not Given Lisinopril (Prinivil) 20 mg PO BEDTIME [facility] Magnesium Oxide (Magnesium Oxide) 250 mg PO BIDM [facility] Last Admin: 03/23/18 16:10 Dose: 250 mg Morphine Sulfate (Morphine) 2 mg IVPUSH ONETIME ONE Stop: 03/20/18 03:16 Last Admin: 03/20/18 03:27 Dose: 2 mg Non-Formulary Medication (Cataractive 3) 1 drop EYELF QID [facility] Last Admin: 03/21/18 14:52 Dose: Not Given - Exam General: Reports: Alert, Oriented HEENT: Reports: Pupils Equal, Pupils Reactive, EOMI, Mucous Membr. Moist/[place] Neck: Reports: Supple Lungs: Reports: Clear to Auscultation, Normal Respiratory Effort Cardiovascular: Reports: Regular Rate, Regular Rhythm GI/Abdominal Exam: Normal Bowel Sounds, Soft, Non-Tender, No Organomegaly, No Distention, No Abnormal Bruit, No Mass, Pelvis Stable (Female) Exam: Normal External Exam, Normal Speculum Exam, Normal Bimanual Exam Rectal (Female) Exam: Normal Exam, Normal Rectal Tone Back Exam: Reports: Normal Inspection, Full Range of Motion Extremities: Normal Inspection, Normal Range of Motion, Non-Tender, No Pedal Edema, Normal Capillary Refill Skin: Reports: Warm, Dry, Intact Wound/Incisions: Reports: Healing Well Neurological: Reports: No New Focal Deficit Psy/Mental Status: Reports: Alert, Normal Affect, Normal Mood
== END 2018-03-24 13:10 | disposition home or self-care (01) | DRG 641 ==
LOC: DL.ED 02:11 → DL.MS 03:26 → UNDOADMIN 03:26 → DL.MS 03:56
PROVIDERS: ADMIT Internal Medicine; ATTEND Internal Medicine
DX: E87.1 Hypo-osmolality and hyponatremia (principal); R51 Headache; T50.2X5A Adverse effect of carbonic-anhydrase inhibitors, benzothiadiazides and other diuretics, initial encounter; D64.9 Anemia, unspecified; I35.0 Nonrheumatic aortic (valve) stenosis; H35.30 Unspecified macular degeneration; H54.7 Unspecified visual loss; E87.8 Other disorders of electrolyte and fluid balance, not elsewhere classified; E87.5 Hyperkalemia; I10 Essential (primary) hypertension; Z87.891 Personal history of nicotine dependence; Z66 Do not resuscitate; Z91.81 History of falling; Z79.899 Other long term (current) drug therapy; Z79.82 Long term (current) use of aspirin
CPT/HCPCS: 36415; 70450; 80053; 81001; 82272; 83735; 83880; 84484; 85025; 93005; 93010; 96365; 99284; 99285; A9270; J2270; J7030; 80048; 84295; 84443; 97161-GP; 97165-GO; J1650; J1940; J7050

== ENCOUNTER 2020-03-29 08:30 | Inpatient (IN) | payer MEDICARE, OTHER ==
--- NOTE | 2020-03-29 08:59 | EDM.PDOC ---
ED HPI GENERAL MEDICAL PROBLEM - General Chief Complaint: General Stated Complaint: AMBULANCE Time Seen by Provider: 03/29/20 08:45 Source of Information: Reports: Patient, EMS, EMS Notes Reviewed, RN, RN Notes Reviewed History Limitations: Reports: No Limitations - History of Present Illness INITIAL COMMENTS - FREE TEXT/NARRATIVE: Patient presents to ER per [facility] with complaint of weakness to the hands bilaterally that is been going on for a few months. Patient states she has talked to her primary care provider about this, but states she is tired of dropping things. Patient denies any other stroke symptoms. States she lives alone in her own apartment. Patient states she is had some back pain, and upper shoulder pain across the back of the neck and across the shoulders. Muscles are tender to touch in that area. Denies headaches. Patient states she had 1 incident, would not call it a fall she states, but where she lowered herself to the ground from her shower chair and was unable to get back up. States a friend came to help her up. States she did not hit her head, no trauma. Patient denies any heavy lifting or abnormal movements, repetitive movements recently. Patient states she has "some sort of heart condition", and kidney disease. Patient states when she picks up a jar or pills she is unable to pick them up again if she has dropped them. Also has dropped jars and broken them because she does not have the strength to hold them. Admits to mild numbness and tingling to the hands bilaterally which again has been going on for greater than 1 month. Patient states the pain across the shoulders has been approximately 3 weeks. Patient also states she was unable to get out of bed in time this morning and did have a urinary incontinence. Onset: Gradual - Related Data Allergies Allergy/AdvReac Type Severity Reaction Status Date / Time hydrochlorothiazide AdvReac UNKNOWN Verified 01/16/20 17:00 Home Meds: Home Meds Aspirin [Halfprin] 81 mg PO DAILY 04/07/16 [History] Acetaminophen [Tylenol] 650 mg PO Q8H PRN 5 Days #20 tablet 03/24/18 [Rx] Furosemide [Lasix] 60 mg PO BIDDIURETIC #60 tablet 05/15/18 [Rx] Potassium Chloride [Klor-Con 10] 10 meq PO BIDMEALS #60 tab.er 05/15/18 [Rx] Isosorbide Mononitrate [Imdur] 130 mg PO DAILY 01/16/20 [History] Metoprolol Succinate [Toprol XL 50mg] 150 mg PO DAILY 01/16/20 [History] Spironolactone [Aldactone] 25 mg PO DAILY 01/16/20 [History] metOLazone [Metolazone] 5 mg PO DAILY 01/16/20 [History] Past Medical History HEENT History: Reports: Cataract, Impaired Vision, Macular Degeneration Cardiovascular History: Reports: Heart Murmur, Hypertension, Other (See Below) Other Cardiovascular History: AORTIC STENOSIS; PATIENT NOT TAKING ANY MEDICATIONS FOR HTN Respiratory History: Reports: None Gastrointestinal History: Reports: None Genitourinary History: Reports: Chronic Renal Insuffiency, Other (See Below) Other Genitourinary History: CKD stage 3 [employer] [facility] History: Reports: Musculoskeletal History: Reports: None Neurological History: Reports: None Psychiatric History: Reports: None Endocrine/Metabolic History: Reports: Multinodular Thyroid Hematologic History: Reports: None, Anemia Immunologic History: Reports: None Oncologic (Cancer) History: Reports: None Dermatologic History: Reports: None - Infectious Disease History Infectious Disease History: Reports: Measles, Mumps - Past Surgical History Head Surgeries/Procedures: Reports: None HEENT Surgical History: Reports: None, Cataract Surgery Respiratory Surgical History: Reports: None GI Surgical History: Reports: Appendectomy Female Surgical History: Reports: None Endocrine Surgical History: Reports: Thyroid Biopsy, Other (See Below) Neurological Surgical History: Reports: None Musculoskeletal Surgical History: Reports: None Oncologic Surgical History: Reports: None Dermatological Surgical History: Reports: None Social & Family History - Family History Family Medical History: Noncontributory HEENT: Reports: Glaucoma, Impaired Vision Cardiac: Reports: Other (See Below) Other Cardiac Family History: MOTHER HX OF RHEUMATIC FEVER AND CARDIAC DISEASE LATE IN LIFE Respiratory: Reports: None GI: Reports: Other (See Below) Other GI Family History: STOMACH CANCER - FATHER : Reports: None OBGYN: Reports: None Musculoskeletal: Reports: Gout Neurological: Reports: None Psychiatric: Reports: None Endocrine/Metabolic: Reports: Obesity/MBI 30+ Hematologic: Reports: None Immunologic: Reports: None Dermatologic: Reports: None Oncologic: Reports: Other (See Below) Other Oncologic Family History: STOMACH - Caffeine Use Caffeine Use: Reports: Coffee, Soda Caffeine Use Comment: 3-4 CUPS APPROX EACH DAY ED ROS GENERAL - Review of Systems Review Of Systems: Comprehensive ROS is negative, except as noted in HPI. ED EXAM, GENERAL - Physical Exam Exam: See Below Exam Limited By: No Limitations General Appearance: Alert, WD/WN, No Apparent Distress Eye Exam: Bilateral Eye: EOMI, Normal Inspection Ears: Normal External Exam, Hearing Grossly Normal Nose: Normal Inspection Throat/Mouth: Normal Inspection, Normal Voice, No Airway Compromise Head: Atraumatic, Normocephalic Neck: Normal Inspection, Tender Lateral Respiratory/Chest: No Respiratory Distress, No Accessory Muscle Use, Chest Non- Tender, Decreased Breath Sounds Cardiovascular: Normal Peripheral Pulses, Regular Rate, Rhythm, No Edema, No Gallop, No JVD, No Rub, Systolic Murmur Peripheral Pulses: 2+: Radial (L), Radial (R) GI/Abdominal: Normal Bowel Sounds, Soft, Non-Tender (Female) Exam: Deferred Rectal (Female) Exam: Deferred Back Exam: Normal Inspection, Decreased Range of Motion Extremities: Normal Inspection, Non-Tender, No Pedal Edema, Normal Capillary Refill, Limited Range of Motion Neurological: Alert, Oriented, CN II-XII Intact, Normal Cognition, Normal Reflexes, No Motor/Sensory Deficits Psychiatric: Normal Affect, Normal Mood Skin Exam: Warm, Dry, Intact, Normal Color, No Rash Lymphatic: No Adenopathy Course - Vital Signs Last Recorded V/S: Last Vital Signs Temp 98.1 F 03/29/20 08:37 Pulse 78 03/29/20 08:37 Resp 18 03/29/20 08:37 BP 124/62 03/29/20 08:37 Pulse Ox 99 03/29/20 08:37 - Orders/Labs/Meds Orders: Active Orders 24 hr Category Date Time Status Admission Diagnosis [ADT] Stat ADT 03/29/20 09:56 Ordered Admission Status [Patient Status] [ADT] Routine ADT 03/29/20 09:56 Ordered CULTURE URINE [RM] Stat Lab 03/29/20 08:52 Received Labs: Laboratory Tests 03/29/20 03/29/20 03/29/20 Range/Units 08:52 08:59 08:59 WBC 4.3 L (5.0-10.0) 10^3/uL RBC 2.20 L (4.2-5.4) 10^6/uL Hgb 8.1 L (12.0-16.0) g/dL Hct 24.1 L (37.0-47.0) % MCV 109.5 H D (80-100) fL MCH 36.8 H (27.0-34.0) pg MCHC 33.6 (33.0-35.0) g/dL Plt Count 273 (150-450) 10^3/uL Neut % (Auto) 67.0 (42.2-75.2) % Lymph % (Auto) 19.8 L (20.5-50.1) % Bee % (Auto) 10.2 H (2-8) % Eos % (Auto) 2.8 (1.0-3.0) % Baso % (Auto) 0.2 (0.0-1.0) % Sodium 137 (136-145) mmol/L Potassium 3.9 (3.5-5.1) mmol/L Chloride 97 L (98-107) mmol/L Carbon Dioxide 29 (21-32) mmol/L Anion Gap 14.9 H (7-13) mEq/L BUN 82 H (7-18) mg/dL Creatinine 2.33 H (0.55-1.02) mg/dL Est Cr Clr Drug Dosing 13.60 mL/min Estimated GFR (MDRD) 20 BUN/Creatinine Ratio 35.2 (No establ ref range) Glucose 100 H (74-99) mg/dL Calcium 9.1 (8.5-10.1) mg/dL Total Bilirubin 1.7 H (0.2-1.0) mg/dL AST 20 (15-37) U/L ALT 20 (14-59) U/L Alkaline Phosphatase 49 (46-116) U/L Total Protein 7.3 (6.4-8.2) g/dL Albumin 4.1 (3.4-5.0) g/dL Globulin 3.2 Albumin/Globulin Ratio 1.3 Urine Color Yellow (YELLOW) Urine Appearance Slightly cloudy (CLEAR) Urine pH 7.0 (5.0-9.0) Ur Specific [place] 1.020 (1.005-1.030) Urine Protein Negative (NEGATIVE) Urine Glucose (UA) Negative (NEGATIVE) Urine Ketones Negative (NEGATIVE) Urine Occult Blood Negative (NEGATIVE) Urine Nitrite Negative (NEGATIVE) Urine Bilirubin Negative (NEGATIVE) Urine Urobilinogen 0.2 (0.2-1.0) mg/dL Ur Leukocyte Esterase Small H (NEGATIVE) Urine RBC 0-5 /HPF Urine WBC 5-10 H (0-5/HPF) /HPF Ur Epithelial Cells Few (NOT SEEN) /HPF Urine Bacteria Few (0-FEW/HPF) /HPF Meds: Medications Discontinued Medications Generic Name Dose Route Start Last Admin Trade Name Thomas PRN Reason Stop Dose Admin Acetaminophen 650 mg 03/29/20 09:29 03/29/20 09:46 Tylenol PO 03/29/20 09:30 650 mg NOW ONE Administration - Re-Assessments/Exams Free Text/Narrative Re-Assessment/Exam: 03/29/20 09:57 Discussed patient case with Dr. Bragg about the patients status, generalized weakness and risk for falls at home. He agrees to admit the patient for inpatient admission. Departure - Departure Time of Disposition: 09:58 Disposition: Admitted As Inpatient 64 Condition: Fair Clinical Impression: Weakness Anemia Qualifiers: Anemia type: unspecified type Qualified Code(s): D64.9 - Anemia, unspecified - Discharge Information *PRESCRIPTION DRUG MONITORING PROGRAM REVIEWED*: No *COPY OF PRESCRIPTION DRUG MONITORING REPORT IN PATIENT RAISA: No Forms: ED Department Discharge Sepsis Event Note (ED) - Evaluation Sepsis Screening Result: No Definite Risk - Focused Exam Vital Signs: Vital Signs Temp Pulse Resp BP Pulse Ox 03/29/20 08:37 98.1 F 78 18 124/62 99 - My Orders Last 24 Hours: My Active Orders 03/29/20 08:52 CULTURE URINE [RM] Stat 03/29/20 09:56 Admission Diagnosis [ADT] Stat Admission Status [Patient Status] [ADT] Routine - Assessment/Plan Last 24 Hours: My Active Orders 03/29/20 08:52 CULTURE URINE [RM] Stat 03/29/20 09:56 Admission Diagnosis [ADT] Stat Admission Status [Patient Status] [ADT] Routine
[2020-03-29 09:28] LABS: ANION GAP 14.9 mEq/L (7-13)
[2020-03-29] MEDS ORDERED: Acetaminophen 325 MG Tab PO ONE (09:29)
--- NOTE | 2020-03-29 09:38 | CR ---
PROCEDURE INFORMATION: Exam: XR Chest, 1 View Exam date and time: 03/29/2020 9:13 AM Age: 79 years old Clinical indication: Cough; Additional info: Cough, weakness TECHNIQUE: Imaging protocol: XR of the chest Views: 1 view. COMPARISON: CR Chest 1V Frontal 05/13/2018 9:34 AM FINDINGS: Lungs: Unremarkable. No consolidation. Pleural space: Unremarkable. No pleural effusion. No pneumothorax. Heart/Mediastinum: Superior right mediastinal mass redemonstrated consistent with enlarged right lobe of the thyroid gland. Trachea deviated to the left. The borderline heart size may be due to the portable AP technique. Bones/joints: Unremarkable. IMPRESSION: 1. Superior right mediastinal mass redemonstrated consistent with enlarged right lobe of the thyroid gland. 2. No acute findings appreciated
--- NOTE | 2020-03-29 09:44 | CT ---
PROCEDURE INFORMATION: Exam: CT Head Without Contrast Exam date and time: 03/29/2020 9:21 AM Age: 79 years old Clinical indication: Other: Weakness TECHNIQUE: Imaging protocol: Computed tomography of the head without contrast. Radiation optimization: All CT scans at this facility use at least one of these dose optimization techniques: automated exposure control; mA and/or kV adjustment per patient size (includes targeted exams where dose is matched to clinical indication); or iterative reconstruction. COMPARISON: CT Head wo Cont 05/09/2018 1:07 AM FINDINGS: Brain: Multiple small hypodensities at the basal ganglia consistent with remote lacunar infarctions. There is an expected degree of age-related atrophy and chronic white matter ischemic changes. No acute intra-axial or extra-axial hemorrhage appreciated. [place] Stroke Program Early CT Score (ASPECTS) = 10. Ventricles: No ventriculomegaly. Bones/joints: Unremarkable. No acute fracture. Paranasal sinuses: Visualized sinuses are unremarkable. No fluid levels. Mastoid air cells: Visualized mastoid air cells are well aerated. Orbits: There have been bilateral lens replacements. Soft tissues: Unremarkable. IMPRESSION: 1. Multiple small hypodensities at the basal ganglia consistent with remote lacunar infarctions. 2. There is an expected degree of age-related atrophy and chronic white matter ischemic changes. 3. No acute intra-axial or extra-axial hemorrhage appreciated. 4. [place] Stroke Program Early CT Score (ASPECTS) = 10. COMMENTS: If the symptoms that lead to this examination persist or worsen, or there is concern for CVA (which may not manifeston CT for the first 24-48 hours), close interval follow-up MRI (or followup CT if the patient cannot undergo MRI evaluation) could provide additional information; only if clinically indicated.
--- NOTE | 2020-03-29 09:48 | CT ---
PROCEDURE INFORMATION: Exam: CT Cervical Spine Without Contrast Exam date and time: 03/29/2020 9:21 AM Age: 79 years old Clinical indication: Other: Cough, weakness TECHNIQUE: Imaging protocol: Computed tomography images of the cervical spine without contrast. Radiation optimization: All CT scans at this facility use at least one of these dose optimization techniques: automated exposure control; mA and/or kV adjustment per patient size (includes targeted exams where dose is matched to clinical indication); or iterative reconstruction. COMPARISON: No relevant prior studies available. FINDINGS: Vertebrae: No acute fracture. Grade 1 anterolisthesis of C3 on C4 and C4 on C5. Discs/Spinal canal/Neural foramina: The occipital condyles articulate normally with the first cervical vertebra bilaterally. The odontoid is intact. The lateral masses of C1 are in normal position with respect to C2. Facet joints demonstrate no obvious dislocation. Spinous processes are without acute abnormality. Mild degenerative changes at the atlantoaxial articulation. There is multilevel degenerative disc disease. Soft tissues: Unremarkable. Thyroid: Marked thyromegaly. Lungs: There is minimal pleuroparenchymal scarring at the apices Vasculature: Bilateral cervical carotid calcification is appreciated consistent with atherosclerotic disease. IMPRESSION: 1. Grade 1 anterolisthesis of C3 on C4 and C4 on C5. 2. No acute findings
--- NOTE | 2020-03-29 11:25 | HP ---
CHIEF COMPLAINT: Generalized weakness. HISTORY OF PRESENT ILLNESS: The patient is an 79-year-old lady with past medical history of hypertension, severe aortic stenosis, congestive heart failure. She was admitted through the emergency room because she was brought in by ambulance complaining of weakness to the hands bilaterally that has been going on for a few months and she states that she has mentioned this to her primary care provider and she is just getting tired of dropping things. She also mentioned that for the last 1 month, she has been slowly getting weaker. She also complained of some back pain and upper shoulder pain. Lately, when she lowers herself to the ground, she is unable to get back up because of the weakness. She denies though any fever, chills, focal weakness, chest pain, orthopnea, PND, abdominal pain, nor any other associated symptoms. She was seen in the emergency room and she had some lab workup done. CBC: WBC is 4.3, hemoglobin is 8.1, hematocrit is 24.1, platelet is 273. Comp panel remarkable for BUN of 82, creatinine is 2.33, total bilirubin of 1.7. The rest of the panel unremarkable. Urinalysis is remarkable for 5 to 10 wbc. CAT scan of the head showed some microvascular ischemic changes and multiple small hypodensity at the basal ganglia consistent with remote lacunar infarction, but no acute abnormality. Cervical CAT scan showed grade 1 anterolisthesis of C3-C4 and C4- C5, otherwise unremarkable. Chest x-ray is remarkable for the enlarged right lobe of the thyroid gland. Otherwise, unremarkable. Because of this generalized weakness, she was admitted for further evaluation and management. PAST MEDICAL HISTORY: As in H and P. She has also history of goiter and history of severe aortic stenosis and she has been talked about possible valve replacement, but she has declined. She has also chronic kidney disease and anemia of chronic disease. SOCIAL HISTORY: The patient lives in the [facility] here in [place]. She is a nonsmoker and nonalcohol drinker. FAMILY HISTORY: Noncontributory. REVIEW OF SYSTEMS: As in HPI. The rest of the review of systems is negative. HOME MEDICATIONS: Metolazone, spironolactone, potassium chloride, metoprolol, Imdur, Lasix, aspirin, and Tylenol. ALLERGIES: Hydrochlorothiazide. PHYSICAL EXAMINATION: General: The patient is very pleasant. She is alert and oriented, not in any acute distress. Vital Signs: Blood pressure is 124/62, pulse 78, respirations of 18, temperature of 98.1, saturation is 99% on room air. SHEENT: Normocephalic. There are pink palpebral conjunctivae. Sclerae anicteric. No facial droop. Neck: No JVD. No lymphadenopathy. There is no C-spine tenderness. Heart: Regular rate and rhythm. Normal S1 and S2. No gallops. No rubs. There is a grade 2/6 systolic ejection murmur. Lungs: Equal bilaterally. No crackles. No wheezing. Abdomen: Soft, nontender. Bowel sounds positive. Extremities: Remarkable for 1+ bilateral pedal edema. No calf tenderness. There are no signs of cellulitis. ADMITTING DIAGNOSES: 1. General debility and generalized weakness. 2. Azotemia. 3. Chronic kidney disease. 4. Anemia, possibly secondary to anemia of chronic kidney disease. 5. Severe aortic stenosis. 6. History of congestive heart failure. TREATMENT PLAN: The patient is going to be admitted to General Medicine floor. She will be given some cautious IV replacement. PT and OT will be ordered and Director Hair for discharge planning. The patient is a do not resuscitate/do not intubate as per the patient's wishes. [facility] /[id number]
[2020-03-29] MEDS ORDERED: Sodium Chloride 0.9% 10 ML Syringe FLUSH PRN (14:14)
[2020-03-29] MEDS: Acetaminophen 325 MG Tab PO PRN ×2 (14:21→21:22)
[2020-03-29] MEDS: Sodium Chloride 0.9% 1,000 ML IV SCH (14:23)
[2020-03-30] MEDS: Sodium Chloride 0.9% 1,000 ML IV SCH (07:18)
[2020-03-30] MEDS: Acetaminophen 325 MG Tab PO PRN ×2 (07:19→12:03)
[2020-03-30 09:21] LABS: ANION GAP 12.8 mEq/L (7-13)
--- NOTE | 2020-03-30 09:24 | PN ---
DATE: 03/30/2020 SUBJECTIVE: The patient this morning is feeling slightly better. She was seen by Physical Therapy yesterday. The patient currently denies any fever, chills, chest pain, shortness of breath, abdominal pain, nor any other significant complaints. Lab workup this morning is pending. OBJECTIVE: Vital Signs: Blood pressure is 115/32, pulse of 57, respirations 18, temperature of 97.6, and saturation is 100% on room air. Heart: Regular rate and rhythm. No gallops. No rubs. There is a grade 3/6 systolic ejection murmur. Lungs: Equal bilaterally. No crackles. No wheezing. Abdomen: Soft and nontender. Bowel sounds positive. EXTREMITIES: Remarkable for trace bilateral pedal edema. No calf tenderness. MEDICATIONS: Reviewed. PLAN: We will continue with her present management and I am going to discontinue her IV fluids as her oral intake is good. [facility] /[id number]
[2020-03-30] MEDS: Aspirin 81 MG Tab.EC PO SCH (09:27)
[2020-03-30] MEDS: Isosorbide Mononitrate 60 MG Tab.ER PO SCH (09:27)
[2020-03-30] MEDS: Enoxaparin 30 MG/0.3 ML Syringe SUBCUT SCH (09:31)
[2020-03-30] MEDS: Metoprolol Succinate 50 MG Tab.ER PO SCH (09:33)
[2020-03-30] MEDS: Acetaminophen/oxyCODONE 325-5 MG Tab PO PRN (14:14)
[2020-03-31] MEDS: Sodium Chloride 0.9% 1,000 ML IV SCH (00:20)
[2020-03-31] MEDS: Acetaminophen 325 MG Tab PO PRN ×3 (05:30→20:12)
[2020-03-31] MEDS: Metoprolol Succinate 50 MG Tab.ER PO SCH (09:28)
[2020-03-31] MEDS: Isosorbide Mononitrate 60 MG Tab.ER PO SCH (09:29)
[2020-03-31] MEDS: Aspirin 81 MG Tab.EC PO SCH (09:29)
[2020-03-31] MEDS: Spironolactone 25 MG Tab PO SCH (09:30)
[2020-03-31] MEDS: Metolazone 2.5 MG Tab PO SCH (09:30)
[2020-03-31] MEDS: Enoxaparin 30 MG/0.3 ML Syringe SUBCUT SCH (09:31)
--- NOTE | 2020-03-31 10:37 | PN ---
DATE: 03/31/2020 SUBJECTIVE: The patient is doing fairly well. She is still feeling weak, but she denies any chest pain, shortness of breath, fever, chills, abdominal pain, or any other complaints. She gained 4 pounds since admission. OBJECTIVE: Vital Signs: Blood pressure is 107/44, pulse of 64, respirations of 16, temperature of 98.5, and saturation is 100% on room air. Heart: Regular rate and rhythm. Normal S1 and S2. No gallops. No rubs. There is a grade 3/6 systolic ejection murmur. Lungs: Equal bilaterally. No crackles, no wheezing. Abdomen: Soft, nontender. Bowel sounds positive. Extremities: Remarkable for 1+ bilateral pedal edema. No calf tenderness. PLAN: We will discontinue her IV fluids and continue with the rest of her management. I am also going to resume her Lasix as well as metolazone and spironolactone and potassium supplementation as at home. Then, we will recheck basic metabolic panel and CBC in the morning. [facility] /[id number]
[2020-03-31] MEDS: Furosemide 20 MG Tab PO SCH (13:19)
[2020-03-31] MEDS: Potassium Chloride 10 MEQ Tab.ER PO SCH (17:30)
[2020-03-31] MEDS: Acetaminophen/oxyCODONE 325-5 MG Tab PO PRN (20:11)
[2020-04-01] MEDS: Acetaminophen 325 MG Tab PO PRN ×4 (02:57→20:30)
[2020-04-01 06:24] LABS: ANION GAP 14.2 mEq/L (7-13)
[2020-04-01] MEDS ORDERED: Melatonin 3 MG Tab PO PRN (08:08)
[2020-04-01] MEDS ORDERED: Furosemide 40 MG/4 ML VIAL IVPUSH ONE (08:30)
[2020-04-01] MEDS: Isosorbide Mononitrate 60 MG Tab.ER PO SCH (09:23)
[2020-04-01] MEDS: Furosemide 20 MG Tab PO SCH ×2 (09:23→15:21)
[2020-04-01] MEDS: Spironolactone 25 MG Tab PO SCH (09:23)
[2020-04-01] MEDS: Metoprolol Succinate 50 MG Tab.ER PO SCH (09:24)
[2020-04-01] MEDS: Enoxaparin 30 MG/0.3 ML Syringe SUBCUT SCH (09:25)
[2020-04-01] MEDS: Aspirin 81 MG Tab.EC PO SCH (09:25)
[2020-04-01] MEDS: Potassium Chloride 10 MEQ Tab.ER PO SCH ×2 (09:25→17:26)
--- NOTE | 2020-04-01 09:55 | PN ---
DATE: 04/01/2020 SUBJECTIVE: The patient is still complaining of feeling weak and tired, but she denies any chest pain, syncope, fever, chills, shortness of breath, or abdominal pain or any other complaints. LABORATORY WORKUP THIS MORNING: CBC is remarkable for a hemoglobin of 6.3 and a hematocrit of 19.2. Chem-6: BUN is 63, and creatinine is 1.83, and the rest of the panel is unremarkable. OBJECTIVE: Vital Signs: Blood pressure is 140/45, pulse of 96, respirations 16, temperature of 98.3, and saturation is 100% on room air. Heart: Regular rate and rhythm. There is a grade 3/6 systolic ejection murmur. Lungs: Equal bilaterally. No crackles. No wheezing. Abdomen: Soft and nontender. Bowel sounds are positive. Extremities: Remarkable for 1+ bilateral pedal edema. PLAN: We will do the whole anemia workup, including serum iron, TIBC, B12, folate, and stool Hemoccult. We will also transfuse her 2 units packed RBC because of the symptomatic anemia, and we will recheck a CBC in the a.m., and we will also continue with PT and OT. [facility] /[id number]
[2020-04-01] MEDS: Acetaminophen/oxyCODONE 325-5 MG Tab PO PRN (11:44)
[2020-04-02] MEDS: Acetaminophen 325 MG Tab PO PRN ×4 (02:30→20:19)
[2020-04-02] MEDS: Metolazone 2.5 MG Tab PO SCH (07:34)
[2020-04-02] MEDS: Furosemide 20 MG Tab PO SCH ×2 (07:34→14:03)
[2020-04-02] MEDS: Potassium Chloride 10 MEQ Tab.ER PO SCH ×2 (07:35→17:04)
[2020-04-02] MEDS: Metoprolol Succinate 50 MG Tab.ER PO SCH (09:21)
[2020-04-02] MEDS: Aspirin 81 MG Tab.EC PO SCH (09:22)
[2020-04-02] MEDS: Isosorbide Mononitrate 60 MG Tab.ER PO SCH (09:22)
[2020-04-02] MEDS: Acetaminophen/oxyCODONE 325-5 MG Tab PO PRN (09:22)
[2020-04-02] MEDS: Spironolactone 25 MG Tab PO SCH (09:22)
[2020-04-02] MEDS: Enoxaparin 30 MG/0.3 ML Syringe SUBCUT SCH (09:23)
--- NOTE | 2020-04-02 10:02 | PN ---
DATE: 04/02/2020 SUBJECTIVE: The patient received 2 units of packed RBC yesterday, and hemoglobin and hematocrit this morning is 8.9 and 26.6 respectively. The patient mentioned she is feeling better with regard to her hands and she feels a little bit stronger, but she mentioned that she still needs some more strengthening. She is still looking at custodial upon discharge. The patient denies though any chest pain, orthopnea, PND, fever, chills, abdominal pain, nor any other complaints. OBJECTIVE: Vital Signs: Blood pressure is 127/40, pulse of 53, respirations 20, temperature of 98.5, saturation is 98% on room air. Heart: Regular rate and rhythm. Normal S1 and S2. No gallops. No rubs. Lungs: Equal bilaterally. No crackles. No wheezing. Abdomen: Soft, nontender. Bowel sounds positive. Extremities: Remarkable for trace to 1+ bilateral pedal edema. No calf tenderness. MEDICATIONS: Reviewed. PLAN: We will continue with her present management and we will continue with PT and OT. [facility] /[id number]
[2020-04-03] MEDS: Acetaminophen/oxyCODONE 325-5 MG Tab PO PRN ×2 (00:03→14:42)
[2020-04-03] MEDS: Furosemide 20 MG Tab PO SCH ×2 (08:44→13:57)
[2020-04-03] MEDS: Aspirin 81 MG Tab.EC PO SCH (08:44)
[2020-04-03] MEDS: Enoxaparin 30 MG/0.3 ML Syringe SUBCUT SCH (08:44)
[2020-04-03] MEDS: Spironolactone 25 MG Tab PO SCH (08:45)
[2020-04-03] MEDS: Potassium Chloride 10 MEQ Tab.ER PO SCH ×2 (08:47→18:03)
[2020-04-03] MEDS: Metoprolol Succinate 50 MG Tab.ER PO SCH (08:48)
[2020-04-03] MEDS: Isosorbide Mononitrate 60 MG Tab.ER PO SCH (08:48)
[2020-04-03] MEDS: Acetaminophen 325 MG Tab PO PRN ×2 (10:36→22:38)
[2020-04-03 14:12] LABS: ANION GAP 17.2 mEq/L (7-13)
--- NOTE | 2020-04-03 15:56 | PCM.PN ---
- General Info Date of Service: 04/03/20 Subjective Update: Patient seen and examined today. Complains of numbness and tingling in her bilateral fingers. Also reports pain across bilateral shoulders. She reports that she was dropping items prior to admissions because her hand could not hold them. Currently denies any weakness in her limbs. Functional Status: Reports: Pain Controlled - Review of Systems General: Reports: No Symptoms HEENT: Reports: No Symptoms Pulmonary: Reports: No Symptoms Cardiovascular: Reports: No Symptoms Gastrointestinal: Reports: No Symptoms Genitourinary: Reports: No Symptoms Musculoskeletal: Reports: No Symptoms Skin: Reports: No Symptoms Neurological: Reports: No Symptoms Psychiatric: Reports: No Symptoms - Patient Data Vitals - Most Recent: Last Vital Signs Temp 98.7 F 04/03/20 12:00 Pulse 61 04/03/20 12:00 Resp 20 04/03/20 12:00 BP 128/41 L 04/03/20 12:00 Pulse Ox 98 04/03/20 12:00 Weight - Most Recent: 155 lb 1.6 oz I&O - Last 24 Hours: Intake & Output 04/03/20 04/03/20 04/03/20 06:59 14:59 22:59 Intake Total 1010 920 175 Output Total 700 1500 Balance 310 920 -1325 Lab Results Last 24 Hours: Laboratory Results - last 24 hr 04/03/20 04/03/20 Range/Units 12:34 12:34 WBC 4.6 L (5.0-10.0) 10^3/uL RBC 2.80 L (4.2-5.4) 10^6/uL Hgb 9.7 L (12.0-16.0) g/dL Hct 28.9 L (37.0-47.0) % MCV 103.2 H (80-100) fL MCH 34.6 H (27.0-34.0) pg MCHC 33.6 (33.0-35.0) g/dL Plt Count 224 (150-450) 10^3/uL Sodium 135 L (136-145) mmol/L Potassium 4.2 (3.5-5.1) mmol/L Chloride 98 (98-107) mmol/L Carbon Dioxide 24 (21-32) mmol/L Anion Gap 17.2 H (7-13) mEq/L BUN 84 H (7-18) mg/dL Creatinine 2.13 H (0.55-1.02) mg/dL Est Cr Clr Drug Dosing 14.88 mL/min Estimated GFR (MDRD) 22 BUN/Creatinine Ratio 39.4 (No establ ref range) Glucose 129 H (74-99) mg/dL Calcium 8.7 (8.5-10.1) mg/dL Total Bilirubin 1.2 H (0.2-1.0) mg/dL AST 18 (15-37) U/L ALT 23 (14-59) U/L Alkaline Phosphatase 56 (46-116) U/L Total Protein 7.1 (6.4-8.2) g/dL Albumin 3.6 (3.4-5.0) g/dL Globulin 3.5 Albumin/Globulin Ratio 1.0 Jerome Results Last 24 Hours: Microbiology 04/01/20 10:00 Stool Occult Blood (JEROME) - Final Stool / Feces NEGATIVE OCCULT BLOOD REFERENCE RANGE: NEGATIVE Med Orders - Current: Current Medications Acetaminophen (Tylenol) 650 mg PO Q4H PRN PRN Reason: Pain (Mild 1-3)/fever Last Admin: 04/03/20 10:36 Dose: 650 mg Documented by: Aspirin (Halfprin) 81 mg PO DAILY [facility] Last Admin: 04/03/20 08:44 Dose: 81 mg Documented by: Enoxaparin Sodium (Lovenox) 30 mg SUBCUT DAILY [facility] Last Admin: 04/03/20 08:44 Dose: 30 mg Documented by: Furosemide (Lasix) 60 mg PO BIDDIURETIC [facility] Last Admin: 04/03/20 13:57 Dose: 60 mg Documented by: Influenza Virus Vaccine (Fluad Quad [id number] Syringe) 60 mcg IM .ONCE ONE Stop: 03/29/20 12:16 Isosorbide Mononitrate (Imdur) 30 mg PO DAILY [facility] Last Admin: 04/03/20 08:48 Dose: Not Given Documented by: Melatonin (Melatonin) 6 mg PO BEDTIME PRN PRN Reason: Insomnia Metolazone (Zaroxolyn) 5 mg PO Q48H [facility] Last Admin: 04/02/20 07:34 Dose: 5 mg Documented by: Metoprolol Succinate (Toprol Xl) 150 mg PO DAILY [facility] Last Admin: 04/03/20 08:48 Dose: Not Given Documented by: Oxycodone/Acetaminophen (Percocet 325-5 Mg) 1 tab PO Q4H PRN PRN Reason: Pain (moderate 4-6) Last Admin: 04/03/20 14:42 Dose: 1 tab Documented by: Potassium Chloride (Klor-Con 10) 10 meq PO BIDMEALS [facility] Last Admin: 04/03/20 08:47 Dose: 10 meq Documented by: Spironolactone (Aldactone) 25 mg PO DAILY [facility] Last Admin: 04/03/20 08:45 Dose: 25 mg Documented by: Discontinued Medications Acetaminophen (Tylenol) 650 mg PO NOW ONE Stop: 03/29/20 09:30 Last Admin: 03/29/20 09:46 Dose: 650 mg Documented by: Furosemide (Lasix) 40 mg IVPUSH NOW ONE Stop: 04/01/20 08:31 Last Admin: 04/01/20 14:50 Dose: 40 mg Documented by: Sodium Chloride (Normal Saline) 1,000 mls @ 60 mls/hr IV ASDIRECTED [facility] Last Admin: 03/31/20 00:20 Dose: 60 mls/hr Documented by: Sodium Chloride (Saline Flush) 10 ml FLUSH ASDIRECTED PRN PRN Reason: Keep Vein Open - Exam General: Alert, Oriented HEENT: Pupils Equal, Pupils Reactive, EOMI, Mucous Membr. Moist/[place] Neck: Supple Lungs: Clear to Auscultation, Normal Respiratory Effort Cardiovascular: Regular Rate, Regular Rhythm GI/Abdominal Exam: Normal Bowel Sounds, Soft, Non-Tender, No Organomegaly, No Distention, No Abnormal Bruit, No Mass, Pelvis Stable Back Exam: Normal Inspection, Full Range of Motion Extremities: Normal Inspection, Normal Range of Motion, Non-Tender, No Pedal Edema, Normal Capillary Refill Skin: Warm, Dry, Intact Neurological: No New Focal Deficit Psy/Mental Status: Alert, Normal Affect, Normal Mood Sepsis Event Note - Evaluation Sepsis Screening Result: No Definite Risk - Focused Exam Vital Signs: Vital Signs Temp Pulse Pulse Resp BP BP BP 04/03/20 12:00 98.7 F 61 20 128/41 L 04/03/20 08:48 57 L 131/37 L 04/03/20 08:00 98.5 F 57 L 20 131/37 L 04/03/20 04:33 98.1 F 59 L 20 143/45 H Pulse Ox 04/03/20 12:00 98 04/03/20 08:48 04/03/20 08:00 98 04/03/20 04:33 98 - Problem List Review Problem List Initiated/Reviewed/Updated: Yes - My Orders Last 24 Hours: My Active Orders 04/03/20 13:17 Antiembolic Devices [RC] PER UNIT ROUTINE MARIE Hose [Antiembolic Hose] [OM.PC] Routine - Plan Plan:: 79-year-old female with history of CKD and CHF admitted with generalized weakness and found to have anemia requiring 2 units of packed red blood cell transfusion. Acute on chronic anemia Likely due to CHF and CKD Status post 2 units packed red blood cells Hemoglobin stable improving today. Hemoglobin 9.7.
[2020-04-04] MEDS: Acetaminophen 325 MG Tab PO PRN ×2 (03:44→09:15)
[2020-04-04 07:45] VITALS: BP 121/47; PULSE 61
[2020-04-04] MEDS: Furosemide 20 MG Tab PO SCH (09:13)
[2020-04-04] MEDS: Metolazone 2.5 MG Tab PO SCH (09:13)
[2020-04-04] MEDS: Aspirin 81 MG Tab.EC PO SCH (09:13)
[2020-04-04] MEDS: Spironolactone 25 MG Tab PO SCH (09:14)
[2020-04-04] MEDS: Potassium Chloride 10 MEQ Tab.ER PO SCH (09:14)
[2020-04-04] MEDS: Enoxaparin 30 MG/0.3 ML Syringe SUBCUT SCH (09:17)
[2020-04-04] MEDS: Isosorbide Mononitrate 60 MG Tab.ER PO SCH (09:44)
[2020-04-04] MEDS: Metoprolol Succinate 50 MG Tab.ER PO SCH (09:44)
--- NOTE | 2020-04-04 09:51 | PCM.DCSUM1 ---
Discharge Summary - Hospital Course Free Text/Narrative:: 79-year-old female with history of CKD, chronic anemia and CHF admitted with generalized weakness and found to have anemia globin of 6.3. She received 2 units of packed red blood cell transfusion. Hemoglobin prior to discharge was 9.7. Investigation for hemolysis and GI bleed were negative. Acute anemia likely due to her chronic CKD. Patient also complained of tingling and numbness in her hands and dropping times when she holds them. There was no demonstrable weakness in her limbs. She may be considered for MRI of cervicothoracic spine as outpatient. Her diuretic dose was decreased to 40 mg p.o. Lasix twice daily. Patient was discharged to a [facility]. Diagnosis: Stroke: No - Discharge Data Discharge Date: 04/04/20 Discharge Disposition: DC/Tfer to [facility] Condition: Good - Referral to Home Health Primary Care Physician: Sheeba Wesley MD - Patient Summary/Data Consults: Consultations 03/29/20 10:56 Consult to Physical Therapy [PT Evaluation and Treatment] [CONS] Routine 03/29/20 10:57 Consult to Case Management/Central Office Worker [CONS] Routine Consult to Occupational Therapy [OT Evaluation and Treatment] [CONS] Routine - Patient Instructions Activity: As Tolerated - Discharge Plan *PRESCRIPTION DRUG MONITORING PROGRAM REVIEWED*: Not Applicable *COPY OF PRESCRIPTION DRUG MONITORING REPORT IN PATIENT RAISA: Not Applicable Prescriptions/Med Rec: Furosemide [Lasix] 40 mg PO BID #60 tab Home Medications: Home Meds Aspirin [Halfprin] 81 mg PO DAILY 04/07/16 [History] Acetaminophen [Tylenol] 650 mg PO Q8H PRN 5 Days #20 tablet 03/24/18 [Rx] Potassium Chloride [Klor-Con 10] 10 meq PO BIDMEALS #60 tab.er 05/15/18 [Rx] Isosorbide Mononitrate [Imdur] 30 mg PO DAILY 01/16/20 [History] Metoprolol Succinate [Toprol XL 50mg] 150 mg PO DAILY 01/16/20 [History] Spironolactone [Aldactone] 25 mg PO DAILY 01/16/20 [History] metOLazone [Metolazone] 5 mg PO Q48H 01/16/20 [History] Furosemide [Lasix] 40 mg PO BID #60 tab 04/04/20 [Rx] Oxygen Therapy Mode: Room Air Referrals: Sheeba Wesley MD [Primary Care Provider] - - Discharge Summary/Plan Comment DC Time >30 min.: Yes - General Info Date of Service: 04/04/20 Admission Dx/Problem (Free Text: Acute on chronic anemia Subjective Update: Patient seen and examined today. Continues to do well. He has some tingling and numbness in her hands. Functional Status: Reports: Pain Controlled - Review of Systems General: Reports: No Symptoms HEENT: Reports: No Symptoms Pulmonary: Reports: No Symptoms Cardiovascular: Reports: No Symptoms Gastrointestinal: Reports: No Symptoms Genitourinary: Reports: No Symptoms Musculoskeletal: Reports: No Symptoms Skin: Reports: No Symptoms Neurological: Reports: Paresthesia Psychiatric: Reports: No Symptoms - Patient Data Vitals - Most Recent: Last Vital Signs Temp 97.8 F 04/04/20 07:43 Pulse 61 04/04/20 09:44 Resp 20 04/04/20 07:43 BP 121/47 L 04/04/20 09:44 Pulse Ox 98 04/04/20 07:43 Weight - Most Recent: 151 lb 3.2 oz I&O - Last 24 hours: Intake & Output 04/03/20 04/04/20 04/04/20 22:59 06:59 14:59 Intake Total 425 620 Output Total 1700 650 Balance -1275 -30 Lab Results - Last 24 hrs: Laboratory Results - last 24 hr 04/03/20 04/03/20 04/04/20 Range/Units 12:34 12:34 08:20 WBC 4.6 L (5.0-10.0) 10^3/uL RBC 2.80 L (4.2-5.4) 10^6/uL Hgb 9.7 L (12.0-16.0) g/dL Hct 28.9 L (37.0-47.0) % MCV 103.2 H (80-100) fL MCH 34.6 H (27.0-34.0) pg MCHC 33.6 (33.0-35.0) g/dL Plt Count 224 (150-450) 10^3/uL Sodium 135 L (136-145) mmol/L Potassium 4.2 (3.5-5.1) mmol/L Chloride 98 (98-107) mmol/L Carbon Dioxide 24 (21-32) mmol/L Anion Gap 17.2 H (7-13) mEq/L BUN 84 H (7-18) mg/dL Creatinine 2.13 H (0.55-1.02) mg/dL Est Cr Clr Drug Dosing 14.88 mL/min Estimated GFR (MDRD) 22 BUN/Creatinine Ratio 39.4 (No establ ref range) Glucose 129 H (74-99) mg/dL Calcium 8.7 (8.5-10.1) mg/dL Total Bilirubin 1.2 H (0.2-1.0) mg/dL AST 18 (15-37) U/L ALT 23 (14-59) U/L Alkaline Phosphatase 56 (46-116) U/L Total Protein 7.1 (6.4-8.2) g/dL Albumin 3.6 (3.4-5.0) g/dL Globulin 3.5 Albumin/Globulin Ratio 1.0 SARS CoV-2 RNA Rapid SUSANA Negative (NEGATIVE) MIRYAM Results - Last 24 hrs: Microbiology 04/01/20 10:00 Stool Occult Blood (MIRYAM) - Final Stool / Feces NEGATIVE OCCULT BLOOD REFERENCE RANGE: NEGATIVE Med Orders - Current: Current Medications Acetaminophen (Tylenol) 650 mg PO Q4H PRN PRN Reason: Pain (Mild 1-3)/fever Last Admin: 04/04/20 09:15 Dose: 650 mg Documented by: Aspirin (Halfprin) 81 mg PO DAILY [facility] Last Admin: 04/04/20 09:13 Dose: 81 mg Documented by: Enoxaparin Sodium (Lovenox) 30 mg SUBCUT DAILY [facility] Last Admin: 04/04/20 09:17 Dose: 30 mg Documented by: Furosemide (Lasix) 60 mg PO BIDDIURETIC [facility] Last Admin: 04/04/20 09:13 Dose: 60 mg Documented by: Isosorbide Mononitrate (Imdur) 30 mg PO DAILY [facility] Last Admin: 04/04/20 09:44 Dose: Not Given Documented by: Melatonin (Melatonin) 6 mg PO BEDTIME PRN PRN Reason: Insomnia Metolazone (Zaroxolyn) 5 mg PO Q48H [facility] Last Admin: 04/04/20 09:13 Dose: 5 mg Documented by: Metoprolol Succinate (Toprol Xl) 150 mg PO DAILY [facility] Last Admin: 04/04/20 09:44 Dose: Not Given Documented by: Oxycodone/Acetaminophen (Percocet 325-5 Mg) 1 tab PO Q4H PRN PRN Reason: Pain (moderate 4-6) Last Admin: 04/03/20 14:42 Dose: 1 tab Documented by: Potassium Chloride (Klor-Con 10) 10 meq PO BIDMEALS [facility] Last Admin: 04/04/20 09:14 Dose: 10 meq Documented by: Spironolactone (Aldactone) 25 mg PO DAILY [facility] Last Admin: 04/04/20 09:14 Dose: 25 mg Documented by: Discontinued Medications Acetaminophen (Tylenol) 650 mg PO NOW ONE Stop: 03/29/20 09:30 Last Admin: 03/29/20 09:46 Dose: 650 mg Documented by: Furosemide (Lasix) 40 mg IVPUSH NOW ONE Stop: 04/01/20 08:31 Last Admin: 04/01/20 14:50 Dose: 40 mg Documented by: Sodium Chloride (Normal Saline) 1,000 mls @ 60 mls/hr IV ASDIRECTED [facility] Last Admin: 03/31/20 00:20 Dose: 60 mls/hr Documented by: Influenza Virus Vaccine (Fluad Quad [id number] Syringe) 60 mcg IM .ONCE ONE Stop: 04/04/20 09:01 Last Admin: 04/04/20 09:18 Dose: 60 mcg Documented by: Sodium Chloride (Saline Flush) 10 ml FLUSH ASDIRECTED PRN PRN Reason: Keep Vein Open - Exam General: Reports: Alert, Oriented HEENT: Reports: Pupils Equal, Pupils Reactive, EOMI, Mucous Membr. Moist/[place] Neck: Reports: Supple Lungs: Reports: Clear to Auscultation, Normal Respiratory Effort Cardiovascular: Reports: Regular Rate, Regular Rhythm GI/Abdominal Exam: Normal Bowel Sounds, Soft, Non-Tender, No Organomegaly, No Distention, No Abnormal Bruit, No Mass, Pelvis Stable Back Exam: Reports: Normal Inspection, Full Range of Motion Extremities: Normal Inspection, Normal Range of Motion, Non-Tender, No Pedal Edema, Normal Capillary Refill Skin: Reports: Warm, Dry, Intact Wound/Incisions: Reports: Healing Well Neurological: Reports: No New Focal Deficit Psy/Mental Status: Reports: Alert, Normal Affect, Normal Mood
== END 2020-04-04 10:30 | DRG 293 ==
LOC: DL.ED 08:30 → DL.MS 09:56
PROVIDERS: ADMIT Internal Medicine; ATTEND Internal Medicine
PROC: 3E0234Z Introduction of Serum, Toxoid and Vaccine into Muscle, Percutaneous Approach (ICD-10-PCS; principal; 2020-03-29)
PROC: 302 Administration, Circulatory, Transfusion (ICD-10-PCS; 2020-04-02)
DX: R53.1 Weakness (principal); D64.9 Anemia, unspecified; I13.0 Hypertensive heart and chronic kidney disease with heart failure and stage 1 through stage 4 chronic kidney disease, or unspecified chronic kidney disease; N18.3 Chronic kidney disease, stage 3 (moderate); D63.1 Anemia in chronic kidney disease; I50.9 Heart failure, unspecified; I12.9 Hypertensive chronic kidney disease with stage 1 through stage 4 chronic kidney disease, or unspecified chronic kidney disease; E04.2 Nontoxic multinodular goiter; Z20.828 Contact with and (suspected) exposure to other viral communicable diseases; Z79.82 Long term (current) use of aspirin; Z98.890 Other specified postprocedural states; Z88.8 Allergy status to other drugs, medicaments and biological substances; Z79.899 Other long term (current) drug therapy; Z90.49 Acquired absence of other specified parts of digestive tract; Z98.49 Cataract extraction status, unspecified eye; Z23 Encounter for immunization; Z91.81 History of falling; H35.30 Unspecified macular degeneration; H54.7 Unspecified visual loss; I35.0 Nonrheumatic aortic (valve) stenosis
CPT/HCPCS: 36415; 70450; 71045; 72125; 80053; 81001; 82607; 82746; 84443; 85025; 87086; 99284; 99285; A9270; 36430; 51702; 80048; 82272; 83540; 83550; 85027; 86850; 86900; 86901; 86920; 86922; 90653; 97116-GP; 97162-GP; 97165-GO; 97530-GO; 99221; 99222; 99231; 99232; 99239; G0008; J1650; J1940; J7030; P9016; U0002